=== PATIENT | female | born 1945 | race Caucasian/White ===

== ENCOUNTER → 2017-05-22 11:43 | Outpatient (CLI) | payer MEDICARE, SELFPAY ==
[2017-05-22 15:58] LABS: Chol/HDL Ratio 3.1 (1-3.5); Cholesterol 152 mg/dL (140-200); HDL Cholesterol 49 mg/dL (29-89); LDL Cholesterol 66 mg/dL (0-130); Triglycerides 183 mg/dL (30-200); VLDL Cholesterol 37 mg/dL (0-40)
[2017-05-22 16:45] LABS: Anion Gap 15.2 mEq/L (5-15); Chloride 102 mmol/L (98-107); Potassium 4.2 mmoL/L (3.5-5.1); Sodium 140 mmol/L (136-145)
[2017-05-22 17:19] LABS: Alanine Aminotransferase 27 U/L (12-78); Albumin/Globulin Ratio 1.1 (1.1-1.8); Alkaline Phosphatase 85 U/L (46-116); Aspartate Amino Transferase 21 U/L (15-37); Bilirubin,Total 0.3 mg/dL (0.2-1.0); Blood Urea Nitrogen 11 mg/dL (7-18); Calcium 9.2 mg/dL (8.5-10.1); Carbon Dioxide 27 mmol/L (21.0-32.0); Creatinine,Serum 0.89 mg/dL (0.55-1.02); Estimated Glomerular Filt Rate 63 ml/min (>60); GFR (African American) 76 ML/MIN (>60); Globulin 3.6 gm/dl (1.3-3.2); Glucose 94 mg/dL (74-106); Thyroid Stimulating Hormone 0.62 uIU/ml (0.358-3.740); Total Protein,Serum 7.6 gm/dL (6.4-8.2)
== END ==
PROVIDERS: Visit Provider Internal Medicine Adolescent Medicine
DX: E78.5 Hyperlipidemia, unspecified (principal); E03.9 Hypothyroidism, unspecified
CPT/HCPCS: 36415; 80053; 80061; 84443

== ENCOUNTER → 2017-07-20 11:56 | Outpatient (CLI) | payer MEDICARE, SELFPAY ==
--- NOTE | 2017-07-20 12:38 | XR_ITS ---
XR foot wt bearing LT 3V HISTORY: Foot pain ITS.REASON: RT FOOT ULCER ORDERING PHYSICIAN: Krysta Soria DPM PATIENT AGE: 71 years COMPARISON: None FINDINGS: No fracture or dislocation. No lytic or blastic change. There is normal mineralization.. The joint spaces are well-preserved. No significant degenerative/arthritic changes. No erosive changes evident. IMPRESSION: Negative, no acute finding
--- NOTE | 2017-07-20 12:38 | XR_ITS ---
XR foot wt bearing RT 3V HISTORY: ITS.REASON: RT FOOT ULCER ORDERING PHYSICIAN: Krysta Soria DPM PATIENT AGE: 71 years COMPARISON: None FINDINGS: There are mild osteoarthritic changes of the first metatarsal phalangeal joint with minimal hallux bowel gas with the first metatarsal phalangeal angle of 23 degrees. No fracture or lytic lesion on the lateral view another tiny hyperdensities along the soft tissues of the foot along the plantar and distal aspect of the first metatarsal. While this could be related to artifact, small foreign bodies are also included in the differential diagnosis. IMPRESSION: Mild hallux valgus with mild osteoarthritis of the first metatarsophalangeal joint Artifact versus foreign body along the plantar surface of the foot at the metatarsophalangeal junction
[2017-07-20 13:12] LABS: Basophils % 0.6 % (0.1-2.0); Eosinophils # 0.1 K/mm3 (0.0-0.4); Eosinophils % 0.9 % (0.1-12.0); Hemoglobin 14.4 g/dL (12.2-16.2); Lymphocytes # 2.8 K/mm3 (0.7-4.5); Mean Corpuscular HGB Conc 32.7 g/dL (31.8-35.4); Mean Corpuscular Hemoglobin 30.4 pg (27.0-31.2); Mean Corpuscular Volume 92.8 fl (81-99); Mean Platelet Volume 7.9 fl (7.4-10.4); Monocytes # 0.5 K/mm3 (0.1-1.0); Monocytes % 6.3 % (1.7-9.3); Neutrophils % 54.2 % (37.0-80.0); Platelet Count 214 K/mm3 (142-424); Red Blood Count 4.74 M/mm3 (4.20-5.40); Red Cell Distribution Width 12.8 % (11.5-17.5); White Blood Count 7.4 K/mm3 (4.8-10.8)
[2017-07-20 13:23] LABS: Hemoglobin A1C 5.5 % (0.0-7.0)
[2017-07-20 14:18] LABS: Erythrocyte Sedimentation Rate 13 mm/hr (0-30)
[2017-07-20 14:38] LABS: Alanine Aminotransferase 33 U/L (12-78); Albumin/Globulin Ratio 1.1 (1.1-1.8); Alkaline Phosphatase 88 U/L (46-116); Aspartate Amino Transferase 20 U/L (15-37); Bilirubin,Total 0.3 mg/dL (0.2-1.0); Blood Urea Nitrogen 9 mg/dL (7-18); Calcium 10.3 mg/dL (8.5-10.1); Carbon Dioxide 28 mmol/L (21.0-32.0); Chloride 104 mmol/L (98-107); Creatinine,Serum 0.86 mg/dL (0.55-1.02); Estimated Glomerular Filt Rate 65 ml/min (>60); GFR (African American) 79 ML/MIN (>60); Globulin 3.7 gm/dl (1.3-3.2); Glucose 93 mg/dL (74-106); Sodium 142 mmol/L (136-145); Total Protein,Serum 7.7 gm/dL (6.4-8.2)
[2017-07-20 14:43] LABS: C-Reactive Protein < 0.2 mg/L (0.0-0.9)
== END ==
PROVIDERS: Visit Provider Podiatrist
DX: L97.511 Non-pressure chronic ulcer of other part of right foot limited to breakdown of skin (principal)
CPT/HCPCS: 36415; 73630; 80053; 83036; 85025; 85651; 86140

== ENCOUNTER → 2017-07-26 10:47 | Outpatient (REF) | payer MEDICARE, SELFPAY | LOC: LAB 10:47 | PROVIDERS: Visit Provider Podiatrist | DX: L98.9 Disorder of the skin and subcutaneous tissue, unspecified (principal) | CPT/HCPCS: 87102; 87206; 87220 ==

== ENCOUNTER → 2018-01-23 09:51 | Outpatient (CLI) | payer MEDICARE, SELFPAY ==
[2018-01-23 12:59] LABS: Alanine Aminotransferase 34 U/L (12-78); Albumin Level 3.6 gm/dL (3.4-5.0); Alkaline Phosphatase 90 U/L (46-116); Anion Gap 11.3 mEq/L (5-15); Aspartate Amino Transferase 25 U/L (15-37); Bilirubin,Total 0.4 mg/dL (0.2-1.0); Blood Urea Nitrogen 12 mg/dL (7-18); Calcium 9.4 mg/dL (8.5-10.1); Carbon Dioxide 30 mmol/L (21.0-32.0); Chloride 104 mmol/L (98-107); Chol/HDL Ratio 2.9 (1-3.5); Cholesterol 136 mg/dL (140-200); Creatinine,Serum 0.85 mg/dL (0.55-1.02); Estimated Glomerular Filt Rate 66 ml/min (>60); GFR (African American) 80 ML/MIN (>60); Globulin 3.5 gm/dl (1.3-3.2); Glucose 90 mg/dL (74-106); HDL Cholesterol 47 mg/dL (29-89); LDL Cholesterol 51 mg/dL (0-130); Potassium 4.3 mmoL/L (3.5-5.1); Sodium 141 mmol/L (136-145); Total Protein,Serum 7.1 gm/dL (6.4-8.2); Triglycerides 192 mg/dL (30-200); VLDL Cholesterol 38 mg/dL (0-40)
== END ==
PROVIDERS: Visit Provider Internal Medicine Adolescent Medicine
DX: E78.5 Hyperlipidemia, unspecified (principal)
CPT/HCPCS: 36415; 80053; 80061

== ENCOUNTER → 2019-01-14 12:48 | Outpatient (CLI) | payer MEDICARE, SELFPAY ==
--- NOTE | 2019-01-14 12:58 | XR_ITS ---
PROCEDURE: XR SACROILIAC JOINT BI MIN 3V CLINICAL INDICATION: LOW BACK PAIN WITH SCIATICA COMPARISON: No exams were available for comparison FINDINGS: No fracture or dislocation. No lytic or blastic change. There are mild osteoarthritic changes of the left SI joint. No fusion or lytic change IMPRESSION: Mild osteoarthritic change of the left SI joint Dictated by: Dong Hope MD 01/14/2019 14:55 Electronically signed by Dong Hope MD in [place] 01/14/2019 14:55
--- NOTE | 2019-01-14 12:58 | XR_ITS ---
PROCEDURE: XR HIP LT 2-3V W/PELVIS CLINICAL INDICATION: LOW BACK PAIN WITH SCIATICA Mean pain remains on COMPARISON: No exams were available for comparison FINDINGS: There are mild osteoarthritic changes of the left hip. No fracture or dislocation. No lytic or blastic change. IMPRESSION: Mild osteoarthritis of the left hip Dictated by: Dong Hope MD 01/14/2019 14:52 Electronically signed by Dong Hope MD in [place] 01/14/2019 14:52
--- NOTE | 2019-01-14 12:58 | XR_ITS ---
PROCEDURE: XR HIP RT 2-3V W/PELVIS CLINICAL INDICATION: LOW BACK PAIN WITH SCIATICA COMPARISON: No exams were available for comparison FINDINGS: No fracture or dislocation. There are minimal osteoarthritic changes of the right hip with slight decrease in the joint space superiorly. No lytic or blastic change IMPRESSION: Minimal osteoarthritic change right hip Dictated by: Dong Hope MD 01/14/2019 14:36 Electronically signed by Dong Hope MD in [place] 01/14/2019 14:36
--- NOTE | 2019-01-14 12:58 | XR_ITS ---
PROCEDURE: XR LUMBAR SPINE MIN 4V CLINICAL INDICATION: LOW BACK PAIN WITH SCIATICA COMPARISON: No exams were available for comparison FINDINGS: Mild lumbar scoliosis convex left. Multilevel degenerative disc disease from L2-S1. There is 3 mm retrolisthesis of L2. There is 12 mm anterolisthesis of L4 with severe degenerative disc disease at L4-5. There is mild loss of height superiorly at L5 with some ill definition of the posterior superior aspect of the vertebral body. Mild osteoarthritic changes are present involving the left SI joint. Facet arthritic changes are present at L3-L4 L5 and S1. There are surgical clips in the right upper quadrant. IMPRESSION: Lumbar spondylosis with degenerative disc disease and facet arthritic change. Grade 1 spondylolisthesis L4 on L5. There is some loss of height involving the superior aspect of L5. This is age indeterminate. MRI of the lumbar spine may be of further value. Dictated by: Dong Hope MD 01/14/2019 14:35 Electronically signed by Dong Hope MD in [place] 01/14/2019 14:35
== END ==
PROVIDERS: PCP Internal Medicine Adolescent Medicine; Visit Provider Internal Medicine Adolescent Medicine
DX: M54.5 Low back pain (principal); M53.3 Sacrococcygeal disorders, not elsewhere classified
CPT/HCPCS: 72110; 72202; 73502

== ENCOUNTER → 2019-02-11 12:47 | Outpatient (POV) | payer MEDICARE, SELFPAY ==
[2019-02-11 13:13] VITALS: BP 132/55; PULSE 95; RESP 18; O2SAT 97; BMI 24.0
--- NOTE | 2019-02-11 14:20 | HMH.PMCON ---
Assessment and Plan (1) Sacroiliitis Current visit: Yes Status: Acute Category: Medical Code(s): M46.1 - Sacroiliitis, not elsewhere classified (2) Degenerative disc disease Current visit: Yes Status: Chronic Category: Medical (3) Postlaminectomy syndrome Current visit: Yes Status: Chronic Category: Medical Code(s): M96.1 - Postlaminectomy syndrome, not elsewhere classified - Assessment and plan all Dx Assessment and Plan for all problems:: Patient had a long discussion in regards to treatment options I believe we will begin with an SI joint injection bilaterally. We will see if this is beneficial in regards to her low back and SI joint pain. Patient may need an epidural in the future however I do believe that this would be a good place to start given her symptomology. She is continuing her anti-inflammatories and her's home stretching program. I will follow-up with her after injection reassess her symptoms at that time she is been instructed to call the office if she has any issues prior to her next appointment. Dr. Espinosa has reviewed this note and agrees with this plan of care. This note was dictated using voice recognition software and may contain errors or omissions HPI - Data of Consult Consult date: 02/11/19 Requesting Physician: Savannah Barksdale APRN Primary Care Provider: Zander Santos MD - Consult Narrative Reason for consult: Back pain History of present illness: Ms. Cavazos is a 73 year old female who presents today for consultation in regards to her lower back pain. Patient had surgery several years ago. Most of her pain today is in her low back across the entire width of it. Patient does have some radiation down into her left leg. Patient has pain over her bilateral SI she rates her pain today 6 out of 10. Is continually getting worse. Patient is tried and failed anti-inflammatories along with therapy. Patient is continuing a home stretching program. Patient does have x-ray showing osteoarthritic changes involving the SI joints. Patient also has facet arthropathy along with degenerative disc disease. CC: Savannah Barksdale APRN [facility] History I have reviewed the patient's past medical history: Yes Medical History: Reports:: Hyperlipidemia Denies:: Cancer, Diabetes Mellitus Type 1, Diabetes Mellitus Type 2, MRSA *Have you ever received a pneumonia vaccine?: Yes *Have you received a flu vaccine this season?: Yes Other Medical History: Reports: Arthritis, Hypothyroidism, Thyroid Disease Other Surgeries: Yes: No Previous Surgery, Cholecystectomy, Hysterectomy-Total Amputation: No Fractures: No - *Social History Smoking Status: Current every day smoker Tobacco Type: cigarettes # Packs/Day (cigarettes): 1 Alcohol Intake: never Alcohol Intake Frequency:: holidays/special occasions only *Occupational Status:: retired Housing: house Household Members: family *Travel in the last 8 weeks: None Family Hx:: Cancer Review of Systems - Review of Systems ROS General: no recent weight change, no fever, no sleep disturbances Respiratory: no cough, no shortness of air, no recurring pulmonary infections Cardiovascular/Peripheral Vascular: No chest pain, No palpitations, no edema, no shortness of breath. Gastrointestinal: no new onset incontinence, normal bowel movements reported Genitourinary: no new onset incontinence Musculoskeletal: Back pain and SI joint pain Psychiatric: normal mood/ affect Neurological: [denies new onset weakness in extremities], [denies new onset balance issues] Meds Home Medications Medication Instructions Recorded Confirmed Type calcium carbonate-vitamin D3 600 cap PO 07/26/17 04/09/18 History mg (1,500 mg)-400 unit capsule coenzyme [id number] E 100 mg-100 cap PO 07/26/17 04/09/18 History unit capsule cyclobenzaprine 10 mg tablet 10 mg PO BID tab 07/26/17 02/11/19 History diclofenac potassium 50 mg tablet 50 mg PO BID 07/26/17 1
--- NOTE | 2019-02-11 14:26 | P.CONS_ITS ---
Assessment and Plan (1) Sacroiliitis Current visit: Yes Status: Acute Category: Medical Code(s): M46.1 - Sacroiliitis, not elsewhere classified (2) Degenerative disc disease Current visit: Yes Status: Chronic Category: Medical (3) Postlaminectomy syndrome Current visit: Yes Status: Chronic Category: Medical Code(s): M96.1 - Postlaminectomy syndrome, not elsewhere classified - Assessment and plan all Dx Assessment and Plan for all problems:: Patient had a long discussion in regards to treatment options I believe we will begin with an SI joint injection bilaterally. We will see if this is beneficial in regards to her low back and SI joint pain. Patient may need an epidural in the future however I do believe that this would be a good place to start given her symptomology. She is continuing her anti-inflammatories and her's home stretching program. I will follow-up with her after injection reassess her symptoms at that time she is been instructed to call the office if she has any issues prior to her next appointment. Dr. Espinosa has reviewed this note and agrees with this plan of care. This note was dictated using voice recognition software and may contain errors or omissions HPI - Data of Consult Consult date: 02/11/19 Requesting Physician: Savannah Barksdale APRN Primary Care Provider: Zander Santos MD - Consult Narrative Reason for consult: Back pain History of present illness: Ms. Cavazos is a 73 year old female who presents today for consultation in regards to her lower back pain. Patient had surgery several years ago. Most of her pain today is in her low back across the entire width of it. Patient does have some radiation down into her left leg. Patient has pain over her bilateral SI she rates her pain today 6 out of 10. Is continually getting worse. Patient is tried and failed anti-inflammatories along with therapy. Patient is continuing a home stretching program. Patient does have x-ray showing osteoarthritic changes involving the SI joints. Patient also has facet arthropathy along with degenerative disc disease. CC: Savannah Barksdale APRN [facility] History I have reviewed the patient's past medical history: Yes Medical History: Reports:: Hyperlipidemia Denies:: Cancer, Diabetes Mellitus Type 1, Diabetes Mellitus Type 2, MRSA *Have you ever received a pneumonia vaccine?: Yes *Have you received a flu vaccine this season?: Yes Other Medical History: Reports: Arthritis, Hypothyroidism, Thyroid Disease Other Surgeries: Yes: No Previous Surgery, Cholecystectomy, Hysterectomy-Total Amputation: No Fractures: No - *Social History Smoking Status: Current every day smoker Tobacco Type: cigarettes # Packs/Day (cigarettes): 1 Alcohol Intake: never Alcohol Intake Frequency:: holidays/special occasions only *Occupational Status:: retired Housing: house Household Members: family *Travel in the last 8 weeks: None Family Hx:: Cancer Review of Systems - Review of Systems ROS General: no recent weight change, no fever, no sleep disturbances Respiratory: no cough, no shortness of air, no recurring pulmonary infections Cardiovascular/Peripheral Vascular: No chest pain, No palpitations, no edema, no shortness of breath. Gastrointestinal: no new onset incontinence, normal bowel movements reported Genitourinary: no new onset incontinence Musculoskeletal: Back pain and SI joint pain Psychiatric: normal mood/ affect Neurological: [denies new onset weakness in extremities], [denies new onset balance issues]
== END ==
PROVIDERS: PCP Internal Medicine Adolescent Medicine; Visit Provider Clinical Nurse Specialist Family Health
DX: M46.1 Sacroiliitis, not elsewhere classified (principal); M96.1 Postlaminectomy syndrome, not elsewhere classified
CPT/HCPCS: 99202

== ENCOUNTER → 2019-03-12 11:32 | Outpatient (POV) | payer MEDICARE, SELFPAY ==
[2019-03-12 11:53] VITALS: BP 128/73; PULSE 80; RESP 18; O2SAT 99; BMI 24.3
--- NOTE | 2019-03-12 12:16 | HMH.PAINSOAP ---
[facility] Pain Management SOAP Note Subjective:: Patient is a very pleasant 73-year-old white female who presents today for follow-up after bilateral SI joint injections. Patient is being treated for low back pain with radiation into her bilateral buttocks and down her left leg. Patient says she has had this pain ongoing for greater than 10 years. She says the pain has always been worse on the left side. Patient says she got approximately 80% relief for up to 2 weeks following her bilateral SI joint injections. She does say that she got more relief on the right side, however, she says that her right side pain has never been as bad as the left side. Patient does admit that she did do a great deal of strenuous exercising, along with lifting and walking following her injections. She says it was around the Thanksgiving and she was moving around a lot more. She feels this is why the injections did not give her full relief. She would like to proceed with bilateral SI joint injections again. She has rated her pain a 4 out of 10 today. She does continue with anti-inflammatories and a home stretching program. Review of Systems General: No recent weight changes, no fever, no sleep disturbances Respiratory: No cough, no shortness of air, no recurring pulmonary infections Cardiovascular/peripheral vascular: No chest pain, no palpitations, no edema, no shortness of breath Gastrointestinal: No new onset incontinence, normal bowel movements reported Genitourinary: No new onset incontinence Musculoskeletal: Low back pain, bilateral buttock pain, left leg pain Psychiatric: Normal mood/affect Neurological: [Denies weakness in extremities], [denies balance issues] Objective:: Physical exam General: Alert and oriented x3, no acute distress, pleasant and cooperative, [on room air] Lungs: Respirations even and unlabored, symmetrical chest expansion Eyes: PERRL Musculoskeletal: Flexion and extension of lumbar spine somewhat guarded secondary to pain, deep tendon reflexes normal, strength in upper and lower extremities [5/5], [abnormal gait noted], positive Otterbein's test, positive Ally's test, positive compression test, positive distraction test Neurological: Speech clear, concrete rod buster equal, no gross sensory deficit Assessment:: Bilateral sacroiliitis Plan:: We will schedule the patient for bilateral SI joint injections. She does have notable point tenderness and positive Lalito, Ally's, distraction, and compression test. She will continue with anti-inflammatories and a home stretching program. Patient also purchased an SI belt and says that this is giving her about 40% relief. We will see her back following her injections to reassess her symptoms. The patient has been instructed to contact the clinic if she has any concerns before her next appointment. Dr. Espinosa has reviewed this note and agrees with this plan of care. This note was dictated using voice recognition software and make contain errors or omissions. [facility] History I have reviewed the patient's past medical history: Yes Medical History: Reports:: Hyperlipidemia Denies:: Cancer, Diabetes Mellitus Type 1, Diabetes Mellitus Type 2, MRSA *Have you ever received a pneumonia vaccine?: Yes *Have you received a flu vaccine this season?: Yes Other Medical History: Reports: Arthritis, Hypothyroidism, Thyroid Disease Other Surgeries: Yes: No Previous Surgery, Cholecystectomy, Hysterectomy-Total Amputation: No Fractures: No - *Social History Smoking Status: Current every day smoker Tobacco Type: cigarettes # Packs/Day (cigarettes): 1 Alcohol Intake: never Alcohol Intake Frequency:: holidays/special occasions only *Occupational Status:: other Housing: house Household Members: family *Travel in the last 8 weeks: None Family Hx:: Cancer
== END ==
PROVIDERS: PCP Internal Medicine Adolescent Medicine; Visit Provider Clinical Nurse Specialist Family Health
DX: M46.1 Sacroiliitis, not elsewhere classified (principal)
CPT/HCPCS: 99212

== ENCOUNTER → 2019-05-07 11:31 | Outpatient (POV) | payer MEDICARE, SELFPAY ==
--- NOTE | 2019-05-07 11:52 | HMH.PAINSOAP ---
[facility] Pain Management SOAP Note Subjective:: She is a pleasant 73-year-old white female who presents today for follow-up after bilateral SI joint injections. Patient got over 80% relief and is doing extremely well. Patient still has a positive Lalito sign Jamil sign and SI joint compression sign bilaterally however her pain is a 2 out of 10. She is able to do better during her daily activities. Patient would like to repeat the injection and 8 weeks. We will move forward with this. Patient will cancel the injection if she feels like it is unnecessary at the time ROS General: no recent weight change, no fever, no sleep disturbances Respiratory: no cough, no shortness of air, no recurring pulmonary infections Cardiovascular/Peripheral Vascular: No chest pain, No palpitations, no edema, no shortness of breath. Gastrointestinal: no new onset incontinence, normal bowel movements reported Genitourinary: no new onset incontinence Musculoskeletal: SI joint pain Psychiatric: normal mood/ affect Neurological: [denies new onset weakness in extremities], [denies new onset balance issues] Objective:: Physical Exam General: Alert and oriented x3, no acute distress, pleasant and cooperative, [on room air] Lungs: Resps E/U, Symmetrical chest expansion, Eyes: PERRL Musculoskeletal: Flexion and extension of lumbar spine somewhat guarded secondary to pain, deep tendon reflexes normal, strength in upper and lower extremities [5/5], slightly antalgic gait noted Neurological: speech clear, sheep farmer equal, no gross sensory deficits Assessment:: Sacroiliitis Plan:: We will schedule the patient for repeat injection in a month. Patient's been instructed to call the office if she has any issues prior to her next appointment. She is continuing her anti-inflammatories and her home stretching program. Dr. Espinosa has reviewed this note and agrees with this plan of care. This note was dictated using voice recognition software and may contain errors or omissions [facility] History I have reviewed the patient's past medical history: Yes Medical History: Reports:: Hyperlipidemia Denies:: Cancer, Diabetes Mellitus Type 1, Diabetes Mellitus Type 2, MRSA, Seizures *Have you ever received a pneumonia vaccine?: No *Have you received a flu vaccine this season?: No Other Medical History: Reports: Arthritis, Hypothyroidism, Thyroid Disease Other Surgeries: Yes: No Previous Surgery, Cholecystectomy, Hysterectomy-Total Amputation: No Fractures: No - *Social History Smoking Status: Current every day smoker Tobacco Type: cigarettes # Packs/Day (cigarettes): 1 Alcohol Intake: current Alcohol Intake Frequency:: holidays/special occasions only *Occupational Status:: other Housing: house Household Members: family *Travel in the last 8 weeks: None Family Hx:: Cancer
[2019-05-07 12:08] VITALS: BP 105/48; PULSE 80; RESP 18; O2SAT 99; BMI 24.3
== END ==
PROVIDERS: PCP Internal Medicine Adolescent Medicine; Visit Provider Clinical Nurse Specialist Family Health
DX: M46.1 Sacroiliitis, not elsewhere classified (principal); Z72.0 Tobacco use
CPT/HCPCS: 99212

== ENCOUNTER → 2019-10-28 11:28 | Outpatient (CLI) | payer MEDICARE, SELFPAY ==
[2019-10-28 12:02] LABS: Basophils # 0.1 K/mm3 (0-0.2); Eosinophils # 0.2 K/mm3 (0.0-0.4); Eosinophils % 2.7 % (0.1-12.0); Hematocrit 42.8 % (37.0-47.0); Hemoglobin 14.6 g/dL (12.2-16.2); Lymphocytes % 34.4 % (10-50); Mean Corpuscular HGB Conc 34.2 g/dL (31.8-35.4); Mean Corpuscular Hemoglobin 31.4 pg (27.0-31.2); Mean Corpuscular Volume 91.8 fl (81-99); Mean Platelet Volume 7.6 fl (7.4-10.4); Monocytes # 0.4 K/mm3 (0.1-1.0); Neutrophils % 57.9 % (37.0-80.0); Platelet Count 280 K/mm3 (142-424); Red Blood Count 4.66 M/mm3 (4.20-5.40); Red Cell Distribution Width 12.8 % (11.5-17.5); White Blood Count 8.7 K/mm3 (4.8-10.8)
[2019-10-28 12:58] LABS: Alanine Aminotransferase 16 U/L (12-78); Albumin Level 4.3 g/dl (3.5-5.0); Albumin/Globulin Ratio 1.5 (1.1-1.8); Alkaline Phosphatase 98 U/L (38-126); Anion Gap 11.3 mEq/L (5-15); Aspartate Amino Transferase 25 U/L (14-36); Bilirubin,Total 0.5 mg/dl (0.2-1.3); Blood Urea Nitrogen 12 mg/dl (7-17); Calcium 10.3 mg/dl (8.4-10.2); Carbon Dioxide 27 mmol/L (22.0-30.0); Chloride 104 mmol/L (98-107); Chol/HDL Ratio 2.9 (1-3.5); Cholesterol 151 mg/dl (140-200); Estimated Glomerular Filt Rate 82 ml/min (>60); GFR (African American) 99 ML/MIN (>60); Globulin 2.9 g/dL (1.3-3.2); Glucose 95 mg/dl (74-100); HDL Cholesterol 52 mg/dl (40-60); Potassium 4.3 mmoL/L (3.5-5.1); Sodium 138 mmol/L (136-145); Total Protein,Serum 7.2 g/dl (6.3-8.2); Triglycerides 251 mg/dl (30-150); VLDL Cholesterol 50 mg/dL (0-40)
[2019-10-28 13:09] LABS: Direct LDL Cholesterol 73.69 mg/dL (100-129)
[2019-10-28 13:29] LABS: Thyroid Stimulating Hormone 1.14 uIU/mL (0.465-4.68)
== END ==
PROVIDERS: Visit Provider Internal Medicine Adolescent Medicine
DX: E78.5 Hyperlipidemia, unspecified (principal); E03.9 Hypothyroidism, unspecified; M43.16 Spondylolisthesis, lumbar region
CPT/HCPCS: 36415; 80053; 80061; 84443; 85025

== ENCOUNTER → 2019-11-07 13:29 | Outpatient (CLI) | payer MEDICARE, SELFPAY ==
--- NOTE | 2019-11-07 13:33 | CT_ITS ---
PROCEDURE: CT SINUS WO CON CLINICAL HISTORY: RECURRENT MAXILLARY SINUSITIS COMPARISON: No exams were available for comparison TECHNIQUE: Axial images obtained with sagittal and coronal reformats. All CT scans at the facility use one or more dose reduction, viz: automated exposure control, ma/kV adjustment per patient size (including targeted exams where dose is matched to indication, i.e. head), or iterative reconstruction technique. FINDINGS: There is mild mucosal thickening of the frontal sinus on the left with a small air-fluid level. Mucosal thickening also involves the anterior left ethmoid air cells. There is complete opacification of the left maxillary sinus. The right frontal ethmoid and maxillary sinus are unremarkable. The sphenoid sinuses have an unremarkable appearance. No mastoid effusion. The left ostiomeatal complex is occluded. The left maxillary sinus wall is slightly thickened suggesting chronic inflammatory changes. IMPRESSION: Left frontal ethmoid and maxillary sinusitis with mild thickening of the left maxillary sinus wall suggesting chronic sinusitis. There is a small air-fluid level in the left frontal sinus. There is complete opacification of the left maxillary sinus. Dictated b Dong Hope MD 11/07/2019 18:07 Dong Hope MD in [place] 11/07/2019 18:07
== END ==
PROVIDERS: PCP Internal Medicine Adolescent Medicine; Visit Provider Internal Medicine Adolescent Medicine
DX: J01.01 Acute recurrent maxillary sinusitis (principal)
CPT/HCPCS: 70486

== ENCOUNTER → 2020-01-14 09:52 | Outpatient (POV) | payer MEDICARE, SELFPAY | PROVIDERS: Visit Provider Otolaryngology | DX: Z00.00 Encounter for general adult medical examination without abnormal findings (principal) ==

== ENCOUNTER → 2020-04-14 12:49 | Outpatient (POV) | payer MEDICARE, SELFPAY | PROVIDERS: Visit Provider Dermatology | DX: Z00.00 Encounter for general adult medical examination without abnormal findings (principal) ==

== ENCOUNTER → 2020-07-21 12:53 | Outpatient (POV) | payer MEDICARE, SELFPAY | PROVIDERS: Visit Provider Dermatology | DX: Z00.00 Encounter for general adult medical examination without abnormal findings (principal) ==

== ENCOUNTER → 2020-10-19 10:09 | Outpatient (POV) | payer MEDICARE, SELFPAY ==
[2020-10-19 10:20] VITALS: BP 145/62; PULSE 91; RESP 18; O2SAT 97; BMI 23.8
--- NOTE | 2020-10-19 11:24 | HMH.PAINSOAP ---
[facility] Pain Management SOAP Note Subjective:: Patient is a pleasant 75-year-old white female who presents today for follow-up. Patient was last seen in our clinic on 05/21/2019. At that time, the patient did undergo bilateral SI joint injections. Patient did discuss possible RFA versus SI joint fusion at that time. Following those injections, the patient was found to have skin cancer on her left side of face. She did undergo surgical intervention and then had sinus surgery afterwards as well. She has had to postpone any type of injective therapy. Patient is now having pain in her low back area that occasionally radiates into her left leg with a cold sensation. She says the pain also goes into the left foot. She does have left groin pain and left buttock pain. She has been to [facility] in the past and did epidural steroid injections with minimal relief. Patient says that she has pain to bilateral low back area, the left side is worse, however. Patient says standing, walking or when the pain is worse. Sitting does give her some relief. Patient says with her last injections, she did get greater than 60% relief for approximately 3 days. Her pain did return. Prior to those SI injections she did have bilateral SI injections which gave her significant relief, up to 80% for greater than a month. Patient says that the pain is is back and similar to the type of pain she had in the past. Her pain is a 4 out of 10 today. She continues with home stretching and with anti-inflammatories. She is also tried physical therapy for greater than 6 weeks in the past. She has gotten minimal relief. She says that a previous provider did discuss RFA with her. Patient has never had medial branch blocks. She does not report pain with leaning forward. Rather, she says her pain feels better with leaning forward. She is not having pain with extension at her waist. She and I did discuss that if the SI injections did give her relief, corner lock procedure may be an option for her. She would like to proceed with bilateral SI joint injections to see if this gives her relief. She does have tenderness to bilateral SI joints as well as a positive Ally's, compression, distraction test. The pain is worse on the left side. Objective:: Physical exam General: Alert and oriented x3, no acute distress, pleasant and cooperative, [on room air] Lungs: Respirations even and unlabored, symmetrical chest expansion Eyes: PERRL Musculoskeletal: Flexion and extension of [] lumbar [spine] somewhat guarded secondary to pain, strength in upper and lower extremities [5/5], [antalgic gait noted], positive Ally's test, positive compression test, positive distraction test Neurological: Speech clear, [cashier general equal], no gross sensory deficit Assessment:: Sacroiliitis bilateral Plan:: We will schedule the patient for bilateral SI joint injections. She has tried these injections in the past and did not get significant relief. Patient will need to undergo x-ray of pelvis if she is considered to be a corner lock candidate. She is having worse pain on the left side. She does have a positive Ally's, compression, distraction test today as well as tenderness over her SI joints. The left side seems to be worse for her today. She is continuing with home stretching, ice and heat and anti-inflammatories. We will see her back in the clinic after her injections for further evaluation and discuss a further plan of care. Risks and benefits of the procedure have been explained to the patient. Patient would like to proceed with the procedure. Possible side effects of corticosteroids have been discussed with the patient. Patient has been instructed to contact the clinic with any concerns before the next appointment. Dr. Espinosa has reviewed this note and agrees with this plan of care. This note was dictated using voice recognition software and make contain errors or omissions. [facility] History I
== END ==
PROVIDERS: PCP Internal Medicine Adolescent Medicine; Visit Provider Clinical Nurse Specialist Family Health
DX: M46.1 Sacroiliitis, not elsewhere classified (principal)
CPT/HCPCS: 99212; G0463

== ENCOUNTER → 2020-10-26 07:43 | Outpatient (CLI) | payer MEDICARE, SELFPAY ==
--- NOTE | 2020-10-26 07:45 | CT_ITS ---
PROCEDURE: CT LUNG SCREENING CLINICAL INDICATION: H/O NICOTINE DEPENDENCE Current smoker 50 pack year smoking history COMPARISON: CT CHWWO CT CHEST W/WO CONTRAST from 01/02/2017 TECHNIQUE: The exam was performed on a GE Light Speed [address] scanner using 2.90 mGy CTDI. A low dose helical CT CHEST was performed on a multi-detector scanner. All CT scans at the facility use one or more dose reduction, viz: automated exposure control, ma/kV adjustment per patient size (including targeted exams where dose is matched to indication, i.e. head), or iterative reconstruction technique. The LDCT was performed in a facility that meets the criteria for the screening program. Data regarding this exam was submitted to ACR which is an approved registry. The order for this exam indicates that it came as a result of a lung cancer screening counseling shard decision-making visit that included all the elements required of such a visit including smoking cessation. The radiologist interpreting this exam meets the CMS criteria for the LDCT lung cancer screening program. The exam is reported using the Lung-RADS classification scale and reported to the ACR registry. NOTE: This study was performed for the specific purposes of lung cancer screening and is not an alternative to diagnostic chest CT. RADIATION DOSE: CTDI vol(CT dose Index-volume) = 2.90mG DLP (Dose Length Product) = 111.51 mGcm FINDINGS: COPD changes with scattered areas of scarring. There is an irregular opacity in the right costophrenic sulcus at approximately 1 x 0.8 cm. This may be due to an area of scarring. This was not present on the previous exam. There are scattered small parenchymal and subpleural opacities which are unchanged. A 10 mm noncalcified nodules present in the superior segment of the left lower lobe which is slightly increased in size previously measuring 8 mm. This nodule may contain some fat and could represent hamartoma. PET CT correlation suggested if not already performed. OTHER FINDINGS: Mildly prominent precarinal lymph node is present at 1.5 x 1 cm not significantly changed. Coronary artery calcifications are noted. There is a 4 mm nonobstructing stone in the upper pole of the left kidney. There is an asymmetric density in the mid aspect of the left breast superiorly which appears stable by CT however, mammographic correlation is needed. IMPRESSION: Lung-RADS Category 4A Suspicious Follow-up: Suggest PET-CT for further evaluation if not already performed of the 10 mm left lower lobe nodule. This could represent a hamartoma. Cannot exclude an indolent neoplasm. Also suggest mammographic correlation regarding asymmetric density of the left breast. Dictated by: Dong Hope MD 11/08/2020 13:13 Dong Hope MD in [place] 11/08/2020 13:13
[2020-10-26 08:41] LABS: Basophils # 0.1 K/mm3 (0-0.2); Basophils % 0.9 % (0.1-2.0); Eosinophils # 0.3 K/mm3 (0.0-0.4); Eosinophils % 2.1 % (0.1-12.0); Hematocrit 41.9 % (37.0-47.0); Hemoglobin 14.1 g/dL (12.2-16.2); Lymphocytes # 3.1 K/mm3 (0.7-4.5); Lymphocytes % 24.2 % (10-50); Mean Corpuscular HGB Conc 33.7 g/dL (31.8-35.4); Mean Corpuscular Hemoglobin 30.4 pg (27.0-31.2); Mean Corpuscular Volume 90.2 fl (81-99); Mean Platelet Volume 7.7 fl (7.4-10.4); Monocytes # 0.4 K/mm3 (0.1-1.0); Monocytes % 3.3 % (1.7-9.3); Neutrophils # 8.8 K/mm3 (1.8-7.8); Neutrophils % 69.5 % (37.0-80.0); Platelet Count 289 K/mm3 (142-424); Red Blood Count 4.65 M/mm3 (4.20-5.40); Red Cell Distribution Width 13.4 % (11.5-17.5); White Blood Count 12.7 K/mm3 (4.8-10.8)
[2020-10-26 09:14] LABS: Chloride 106 mmol/L (98-107); Potassium 4.9 mmoL/L (3.5-5.1); Sodium 141 mmol/L (136-145)
[2020-10-26 09:17] LABS: Alanine Aminotransferase 18 U/L (12-78); Albumin Level 4.3 g/dl (3.5-5.0); Albumin/Globulin Ratio 1.4 (1.1-1.8); Alkaline Phosphatase 93 U/L (38-126); Anion Gap 11.9 mEq/L (5-15); Aspartate Amino Transferase 28 U/L (14-36); Bilirubin,Total 0.4 mg/dl (0.2-1.3); Blood Urea Nitrogen 13 mg/dl (7-17); Carbon Dioxide 28 mmol/L (22.0-30.0); Cholesterol 148 mg/dl (140-200); Estimated Glomerular Filt Rate 82 ml/min (>60); GFR (African American) 99 ML/MIN (>60); Globulin 3.1 g/dL (1.3-3.2); Total Protein,Serum 7.4 g/dl (6.3-8.2); Triglycerides 196 mg/dl (30-150); VLDL Cholesterol 39 mg/dL (0-40)
[2020-10-26 09:18] LABS: Calcium 9.7 mg/dl (8.4-10.2); Chol/HDL Ratio 3.1 (1-3.5); Glucose 98 mg/dl (74-100); HDL Cholesterol 48 mg/dl (40-60)
[2020-10-26 09:29] LABS: Direct LDL Cholesterol 68.47 mg/dL (100-129)
[2020-10-26 09:48] LABS: Thyroid Stimulating Hormone 2.26 uIU/mL (0.465-4.68)
== END ==
PROVIDERS: PCP Internal Medicine Adolescent Medicine; Visit Provider Internal Medicine Adolescent Medicine
DX: Z87.891 Personal history of nicotine dependence (principal); Z12.2 Encounter for screening for malignant neoplasm of respiratory organs; E78.5 Hyperlipidemia, unspecified; E03.9 Hypothyroidism, unspecified
CPT/HCPCS: 36415; 71271; 80053; 80061; 84443; 85025

== ENCOUNTER 2020-10-30 10:14 | Day surgery (SDC) | payer MEDICARE, SELFPAY ==
[2020-10-30 10:16] VITALS: BP 120/69; PULSE 85; RESP 20; TEMP 36.6; O2SAT 98; BMI 23.9
[2020-10-30 10:29] VITALS: BP 111/72; PULSE 83; RESP 18; O2SAT 97
[2020-10-30 10:30] VITALS: BP 125/62; PULSE 87; RESP 18; O2SAT 98
--- NOTE | 2020-10-30 10:46 | P.PCN_ITS ---
- Procedure Date: 10/30/20 Time: 10:46 Anesthesiologist:: Ailyn Greenwood MD Complications:: None Pre-procedure Diagnosis:: Bilateral sacroiliitis, chronic low back pain, chronic bilateral hip pain Post-procedure Diagnosis:: Same Indications for Procedure:: She is a very pleasant 75-year-old white female who presents today with chronic low back and chronic bilateral hip pain related to the above diagnosis. She has tried and failed conservative treatment including oral pain medication and home stretching program for greater in 6 weeks. Of note, she has previously undergone bilateral SI joint injections in the past and states that she got about 80% pain relief for greater than 1 month with the first set. Over, with the subsequent injections she has been getting 80% but unfortunately very short- term relief for approximately 3 days. Of note, she complains of pain in her low back and radiates down her left lower extremity as well as left-sided groin and left-sided buttock pain and she states she has previously been to [facility] in the past and had underwent an epidural steroid injection with minimal relief. Plan for today is for the patient to undergo repeat bilateral SI joint injections under fluoroscopy Procedure Details:: Informed consent was obtained and the risks and benefits of the procedure was explained to the patient. The patient was taken to the procedure room and placed prone on the procedure table. The patient was prepped using ChloraPrep. The skin and subcutaneous tissues overlying the SI joints were anesthetized using lidocaine. I placed a 22-gauge needle first in the left SI joint and second in the right SI joint. Needle placement was confirmed with dye. After this we injected 5 mL bupivacaine 0.25% and Depo-Medrol 40 mg into each SI joint. Patient tolerated the procedure well with no complication. Plan and Disposition:: Follow-up with this patient in 2 weeks. Will reevaluate pain symptoms at that time. Discussed with the patient should she continue to receive only minimal or short-term pain relief with these injections then she may be a candidate for SI joint stabilization in the future. She states her left SI joint is worse than the right so should we proceed with SI joint stabilization procedure we will start with the left side first.
[2020-10-30 10:53] VITALS: BP 104/50; PULSE 73; RESP 18; O2SAT 98
== END 2020-10-30 10:55 | disposition home or self-care (01) ==
LOC: SC.PAINP 10:15
PROVIDERS: PCP Internal Medicine Adolescent Medicine; Visit Provider Anesthesiology Pain Medicine
DX: M46.1 Sacroiliitis, not elsewhere classified (principal); M54.6 Pain in thoracic spine; G89.29 Other chronic pain; E78.5 Hyperlipidemia, unspecified; E03.9 Hypothyroidism, unspecified; M19.90 Unspecified osteoarthritis, unspecified site; Z72.0 Tobacco use
CPT/HCPCS: 27096; G0260; J1030; Q9966

== ENCOUNTER → 2020-12-03 09:20 | Outpatient (POV) | payer MEDICARE, SELFPAY ==
[2020-12-03 09:45] VITALS: BP 120/58; PULSE 82; RESP 18; O2SAT 100; BMI 23.8
--- NOTE | 2020-12-03 10:41 | HMH.PAINSOAP ---
[facility] Pain Management SOAP Note Subjective:: Patient is a pleasant 75-year-old white female who presents today for follow-up after bilateral SI joint injections. The patient is being treated fo bilateral sacroiliitis. Patient does have chronic low back pain with bilateral chronic hip pain as well. Patient says that she got approximately 70 to 80% relief for 2 weeks after the injection. She is still getting relief, however, her pain is slowly starting to return. She does have pain in the bilateral low back area with radiation into the left leg and into the left great toe. She says that it is a cold sensation in her foot. This sensation did subside initially after the injection, however, it is slowly returning. Patient does report it took 2 to 3 days to begin to get relief after the injection. Patient does have tenderness to bilateral SI joints, however, worse to the left side. She does rate her pain a 5 out of 10 today. She is interested in repeat injective therapy. At her initial visit, there was discussion of corner lock if she does get significant relief with the injections. Review of Systems General: No recent weight changes, no fever, no sleep disturbances Respiratory: No cough, no shortness of air, no recurring pulmonary infections Cardiovascular/peripheral vascular: No chest pain, no palpitations, no edema, no shortness of breath Gastrointestinal: No new onset incontinence, normal bowel movements reported Genitourinary: No new onset incontinence Musculoskeletal: Bilateral low back pain worse to left, left leg pain with numbness and tingling into left great toe Psychiatric: [Normal mood/affect] Neurological: [Denies weakness in extremities], [denies balance issues] Objective:: Physical exam General: Alert and oriented x3, no acute distress, pleasant and cooperative, [on room air] Lungs: Respirations even and unlabored, symmetrical chest expansion Eyes: PERRL Musculoskeletal: Flexion and extension of lumbar [spine] somewhat guarded secondary to pain, strength in upper and lower extremities [5/5], [antalgic gait noted], positive Ally's test, positive distraction test, positive compression test Neurological: Speech clear, [facilities maintenance worker equal], no gross sensory deficit Assessment:: Sacroiliitis bilateral Plan:: We will schedule the patient for repeat bilateral SI joint injections. If the patient gets significant relief, with return of symptoms, she may be a corner lock candidate. She has been given educational information regarding the procedure and was educated on expectations of the procedure. She does understand she does need to get significant relief with the injections to be considered a candidate for the procedure. We will follow up with her after her injections for reevaluation symptoms. Patient has been instructed to contact clinic if she has any concerns for next morning. Possible side effects of corticosteroids have been discussed with the patient. Risks and benefits of the procedure have been explained to the patient. Patient would like to proceed with the procedure. Patient has been instructed to contact the clinic with any concerns before the next appointment. Dr. Espinosa has reviewed this note and agrees with this plan of care. This note was dictated using voice recognition software and make contain errors or omissions. [facility] History I have reviewed the patient's past medical history: Yes Medical History: Reports:: Cancer (melanoma), Hyperlipidemia Denies:: Diabetes Mellitus Type 1, Diabetes Mellitus Type 2, MRSA, Seizures *Have you ever received a pneumonia vaccine?: No *Have you received a flu vaccine this season?: No Other Medical History: Reports: Arthritis, Hypothyroidism, Thyroid Disease Other Surgeries: Yes: No Previous Surgery, Cholecystectomy, Hysterectomy-Total, Sinus Surgery Amputation: No Fractures: No - *Social History Smoking Status: Current every day smoker Tobacco Type: cigarettes # Pa
== END ==
PROVIDERS: PCP Internal Medicine Adolescent Medicine; Visit Provider Clinical Nurse Specialist Family Health
DX: M46.1 Sacroiliitis, not elsewhere classified (principal)
CPT/HCPCS: 99212; G0463

== ENCOUNTER 2021-01-01 09:17 | Day surgery (SDC) | payer MEDICARE, SELFPAY ==
[2021-01-01 09:22] VITALS: BP 111/58; PULSE 77; RESP 18; TEMP 36.8; O2SAT 98; BMI 23.8
[2021-01-01 09:50] VITALS: BP 137/69; PULSE 85; PULSE 99; RESP 18; O2SAT 99
--- NOTE | 2021-01-01 10:15 | HMH.PMPROC ---
- Procedure Date: 01/01/21 Time: 10:15 Anesthesiologist:: Amrit Espinosa MD Complications:: None Pre-procedure Diagnosis:: Sacroiliitis Post-procedure Diagnosis:: Same Indications for Procedure:: Patient is a pleasant 75-year-old white female who we are treating for bilateral hip pain. She is tender over both SI joints. She has a positive Ally's test bilaterally. She is positive Lalito test bilaterally. She is positive SI joint compression test bilaterally. She has a positive distraction test bilaterally. She does very well after these injections for several weeks. Will do repeat bilateral SI joint injection under fluoroscopy today. Procedure Details:: B/L SI joint injection under fluoroscopy Informed consent was obtained and the risks and benefits of the procedure was explained to the patient. The patient was taken to the procedure room and placed prone on the procedure table. The patient was prepped using ChloraPrep. The skin and subcutaneous tissues overlying the SI joints were anesthetized using lidocaine. I placed a 22-gauge needle first in the left SI joint and second in the right SI joint. Needle placement was confirmed with dye. After this we injected 5 mL bupivacaine 0.25% and Depo-Medrol 40 mg into each SI joint. Patient tolerated the procedure well with no complication. Plan and Disposition:: We will follow-up with her in 2 weeks. Will reevaluate symptoms at that time. She may be a candidate for SI joint stabilization if she does not get long-term relief with these injections.
[2021-01-01 12:19] VITALS: BP 117/37; PULSE 76; RESP 18; TEMP 36.4; O2SAT 98
== END 2021-01-01 09:50 | disposition home or self-care (01) ==
LOC: SC.PAINP 09:19
PROVIDERS: PCP Internal Medicine Adolescent Medicine; Visit Provider Anesthesiology
DX: M46.1 Sacroiliitis, not elsewhere classified (principal); E78.5 Hyperlipidemia, unspecified; M19.90 Unspecified osteoarthritis, unspecified site; E03.9 Hypothyroidism, unspecified; Z72.0 Tobacco use; Z90.49 Acquired absence of other specified parts of digestive tract; Z79.890 Hormone replacement therapy; Z79.899 Other long term (current) drug therapy
CPT/HCPCS: 27096; G0260; J1040; Q9966

== ENCOUNTER → 2021-01-18 11:40 | Outpatient (POV) | payer MEDICARE, SELFPAY ==
--- NOTE | 2021-01-18 12:16 | HMH.PAINSOAP ---
[facility] Pain Management SOAP Note Subjective:: Patient is a 75-year-old white female who presents today for follow-up. The patient is having low back pain with radiation into bilateral hips and buttock. She has had 2 rounds of bilateral SI joint injections. Patient's pain is worse on the left side. She says that she gets approximately 80% relief with the injections for about a week. Patient's pain does return. She has tried conservative therapies of physical therapy for more than 6 weeks and continues with home stretching. She is also tried anti-inflammatories with minimal relief. She does rate her pain a 4 out of [address] Espinosa did recommend the patient undergo the SI stabilization procedure if she did not get long-term relief with injections. Review of Systems General: No recent weight changes, no fever, no sleep disturbances Respiratory: No cough, no shortness of air, no recurring pulmonary infections Cardiovascular/peripheral vascular: No chest pain, no palpitations, no edema, no shortness of breath Gastrointestinal: No new onset incontinence, normal bowel movements reported Genitourinary: No new onset incontinence Musculoskeletal: Low back pain with radiation into bilateral buttock and hips, worse to left side Psychiatric: [Normal mood/affect] Neurological: [Denies weakness in extremities], [denies balance issues] Objective:: Physical exam General: Alert and oriented x3, no acute distress, pleasant and cooperative Lungs: Respirations even and unlabored, symmetrical chest expansion Eyes: PERRL Musculoskeletal: Flexion and extension of lumbar [spine] somewhat guarded secondary to pain, [antalgic gait noted], positive Ally's test, positive distraction test, positive compression test, positive Negro's test, positive Gaenslen's test and positive Lalito test Neurological: Speech clear, no gross sensory deficit Assessment:: Sacroiliitis, left Plan:: Patient got great relief with her SI injections at about 80% for 1 week. The patient's pain has returned. She has failed conservative therapies of physical therapy, injections, ice and heat and oral medications. Anti-inflammatories did not help the patient with her pain. Ice and heat therapies have not helped the patient. She does continue with home stretching. We will schedule the patient for a left SI corner lock stabilization procedure. She does report her pain to be worse on the left side. We will see her back after the procedure for reevaluation of symptoms. The patient is not diabetic and is not on any anticoagulation therapy. Risks and benefits of the procedure have been explained to the patient. Patient would like to proceed with the procedure. Patient has been instructed to contact the clinic with any concerns before the next appointment. Dr. Espinosa has reviewed this note and agrees with this plan of care. This note was dictated using voice recognition software and make contain errors or omissions. [facility] History I have reviewed the patient's past medical history: Yes Medical History: Reports:: Hyperlipidemia Denies:: Cancer, Diabetes Mellitus Type 1, Diabetes Mellitus Type 2, MRSA, Seizures *Have you ever received a pneumonia vaccine?: No *Have you received a flu vaccine this season?: No Other Medical History: Reports: Arthritis, Hypothyroidism, Thyroid Disease. Denies: Blood Transfusion Reaction Other Surgeries: Yes: No Previous Surgery, Cholecystectomy, Hysterectomy-Total, Sinus Surgery Amputation: No Fractures: No - *Social History Smoking Status: Current every day smoker Tobacco Type: cigarettes # Packs/Day (cigarettes): 1 Alcohol Intake: never Alcohol Intake Frequency:: holidays/special occasions only *Occupational Status:: employed Housing: house Household Members: spouse *Travel in the last 8 weeks: None Family Hx:: Cancer
[2021-01-18 12:55] VITALS: BP 120/69; PULSE 72; RESP 18; O2SAT 98; BMI 23.8
== END ==
PROVIDERS: Visit Provider Clinical Nurse Specialist Family Health
DX: M46.1 Sacroiliitis, not elsewhere classified (principal)
CPT/HCPCS: 99212; G0463

== ENCOUNTER → 2021-01-26 15:24 | Outpatient (POV) | payer MEDICARE, SELFPAY | PROVIDERS: Visit Provider Dermatology | DX: Z00.00 Encounter for general adult medical examination without abnormal findings (principal) ==

== ENCOUNTER → 2021-04-17 12:06 | Outpatient (CLI) | payer MEDICARE, SELFPAY | PROVIDERS: PCP Internal Medicine Adolescent Medicine; Visit Provider Ophthalmology | DX: Z01.812 Encounter for preprocedural laboratory examination (principal); U07.1 COVID-19 | CPT/HCPCS: C9803; U0003; U0005 ==

== ENCOUNTER 2021-05-18 08:24 | Day surgery (SDC) | payer MEDICARE, SELFPAY ==
[2021-05-12 10:59] VITALS: BMI 25.6
[2021-05-18] VITALS (7 sets, daily range): BP systolic 102–123; BP diastolic 51–71; PULSE 66–75; RESP 16–20; TEMP 36.5–36.7; O2SAT 97–100
== END 2021-05-18 12:07 | disposition home or self-care (01) ==
LOC: OR 08:26
PROVIDERS: PCP Internal Medicine Adolescent Medicine; Visit Provider Ophthalmology
DX: H25.813 Combined forms of age-related cataract, bilateral (principal); H02.831 Dermatochalasis of right upper eyelid; H02.834 Dermatochalasis of left upper eyelid; M19.90 Unspecified osteoarthritis, unspecified site; E03.9 Hypothyroidism, unspecified; E78.5 Hyperlipidemia, unspecified; Z79.890 Hormone replacement therapy; Z79.899 Other long term (current) drug therapy
CPT/HCPCS: 66984; V2632

== ENCOUNTER → 2021-06-12 12:24 | Outpatient (CLI) | payer MEDICARE, SELFPAY ==
[2021-06-12 13:07] LABS: Basophils # 0.1 K/mm3 (0-0.2); Basophils % 0.8 % (0.1-2.0); Eosinophils # 0.1 K/mm3 (0.0-0.4); Eosinophils % 1.2 % (0.1-12.0); Hematocrit 39.7 % (37.0-47.0); Hemoglobin 12.9 g/dL (12.2-16.2); Lymphocytes # 2.6 K/mm3 (0.7-4.5); Lymphocytes % 25.1 % (10-50); Mean Corpuscular HGB Conc 32.5 g/dL (31.8-35.4); Mean Corpuscular Hemoglobin 30.5 pg (27.0-31.2); Mean Corpuscular Volume 93.7 fl (81-99); Mean Platelet Volume 8.3 fl (7.4-10.4); Monocytes # 0.4 K/mm3 (0.1-1.0); Monocytes % 3.9 % (1.7-9.3); Platelet Count 292 K/mm3 (142-424); Red Blood Count 4.23 M/mm3 (4.20-5.40); Red Cell Distribution Width 13.8 % (11.5-17.5); White Blood Count 10.2 K/mm3 (4.8-10.8)
[2021-06-12 14:39] LABS: Blood Urea Nitrogen 16 mg/dl (7-17); Calcium 9.8 mg/dl (8.4-10.2); Carbon Dioxide 28 mmol/L (22.0-30.0); Chloride 105 mmol/L (98-107); Estimated Glomerular Filt Rate 70 ml/min (>60); GFR (African American) 85 ML/MIN (>60); Glucose 91 mg/dl (74-100); Sodium 139 mmol/L (136-145)
== END ==
PROVIDERS: Anesthesiology Pain Medicine; PCP Internal Medicine Adolescent Medicine; Visit Provider Internal Medicine Adolescent Medicine
DX: Z01.812 Encounter for preprocedural laboratory examination (principal); Z11.52 Encounter for screening for COVID-19; M53.3 Sacrococcygeal disorders, not elsewhere classified
CPT/HCPCS: 36415; 80048; 85025; C9803; U0003; U0005

== ENCOUNTER 2021-06-15 10:06 | Day surgery (SDC) | payer MEDICARE, SELFPAY ==
[2021-06-14 10:57] VITALS: BMI 25.6
[2021-06-15] VITALS (12 sets, daily range): BP systolic 93–132; BP diastolic 50–74; PULSE 75–96; RESP 12–21; TEMP 36.3–36.6; O2SAT 92–100
--- NOTE | 2021-06-15 13:19 | P.PN_ITS ---
[facility] Anesthesia Checklist - Patient Identification Patient Identification: Arm Band - Structural Data Admitted From: Home Planned Operative Procedure/s: Left Sacroiliac Joint Fusion Consent for Planned Operative Procedure(s) Verified: Yes Verified Documents: Surgical Consent, History and Physical - NPO Status Verified Time NPO: 00:00 - Additional verifications Anesthesia Reactions: No Hx Blood Transfusions: No Blood Transfusion Reaction: No - Airway Assessment C-Spine Mobility Assessed: Yes (mp2) TMJ Mobility Assessed: Yes Dentition: Good Dentition - Neurological Assessment Level of Consciousness: Awake, Alert - Anesthesia Plan Anesthesia Risk discussed: Yes Anesthesia Plan: Verified ASA Class: II Anesthesia Type: General [facility] History I have reviewed the patient's past medical history: Yes Medical History: Reports:: Cancer (face), Hyperlipidemia Denies:: Diabetes Mellitus Type 1, Diabetes Mellitus Type 2, Internal Pacemaker, MRSA, Seizures *Have you ever received a pneumonia vaccine?: Yes *Have you received a flu vaccine this season?: Yes Other Medical History: Reports: Arthritis, Hypothyroidism, Thyroid Disease. Denies: Blood Transfusion Reaction Anesthesia experience/problems:: nac Laterality Cases: Bilateral: Tonsillectomy Other Surgeries: Yes: Cholecystectomy, Hysterectomy-Total, Sinus Surgery. No: Pacemaker Amputation: No Fractures: No - *Social History Last grade of school completed: High school graduate Smoking Status: Former smoker Tobacco Type: cigarettes # Packs/Day (cigarettes): 1 #Yrs smoked (if former smoker): 60 Alcohol Intake: never Alcohol Intake Frequency:: holidays/special occasions only Substance Use Type: denies use *Occupational Status:: retired Housing: house Household Members: spouse *Travel in the last 8 weeks: None Family Hx:: Cancer
--- NOTE | 2021-06-15 14:47 | P.OP_ITS ---
Date of procedure: 06/15/21 Pre-op Diagnosis:: Left sacroiliitis Post-op Diagnosis:: Same Procedure performed:: Left-sided SI joint stabilization with the cornerloc system Surgeon:: Ailyn Greenwood MD DELIVERY STOCK CLERK:: Kyle Jaimes Anesthesia: GETA Estimated blood loss (mL): 5 Clinical Note:: Patient is a very pleasant 75-year-old white female who presents today with left-sided sacroiliitis. She has tried and failed conservative treatment including oral pain medications and home stretching program for greater than 6 weeks as well as injection therapy. Unfortunately she has exhausted all conservative measures at this time. The plan for today is for the patient to undergo a left-sided SI joint stabilization procedure with the cornerloc system. Operative findings:: n/a Operative note:: Informed consent was obtained and the risk and benefits of the procedure was explained to the patient. Patient was taken to the operating room placed prone on the procedure table. Patient was prepped and draped in sterile fashion. A lateral view of the sacrum with C-arm was taken to make sure it was out of ante version. We then did an oblique view of the right sacroiliac joint. We lined up the anterior and posterior sides of the joint to achieve a [place] . A line was drawn on the skin with the SI joint. The superior and inferior aspect of the joint were anesthetized using lidocaine. The superior and inferior aspect of the joint were marked off. 1 cm medial and 1 cm superiorly into the upper quadrant and 1 cm medial and 1 cm distal a 1 1/2 cm longitudinal incisions were made through the skin and subcutaneous tissues. Guidepins were then placed superior and inferior at a 90 degree angle to each other under C-arm guidance through the incision was made into the superior third and inferior third of the SI joint. Lateral C-arm view was then taken to check the depth of the pins into the SI joint. On the lateral view the joint finder was placed over the guidepin into the appropriate position. The working cannula retractor was then placed over the joint finder into the SI joint into the appropriate position and depth. The joint finder and guidepin were removed. The SI joint was drilled to remove cartilage and to get into the subchondral bone of the sacrum and ilium. The broach was then used to prepare a triangular groove into both the sacrum and ilium for insertion of stabilization grafts. A collagen spine was then placed into the prepared space and the stabilization graft was placed. This was done both superiorly inferiorly into the SI joint. The cannulated retractor was removed. The incisions were then closed with 2-0 Vicryl followed by 4-0 nylon. Dressings were placed and the patient was taken recovery in stable condition. Patient tolerated the procedure well with no complications. Plan & disposition: We will follow-up with this patient in 1 week for wound ch conchis and 2 weeks for staple removal. Also prescribed Percocet 5/325 1 tablet p.o. every 4-6 hours #25 Bactrim DS 1 tablet p.o. twice daily for 5 days #10. Juan Jose and prior drug screens were reviewed and appropriate. Condition: stable Disposition: PACU Complications:: none
--- NOTE | 2021-06-15 14:55 | P.PN_ITS ---
[facility] Anesthesia Record Part I Intake, IV Amount: 1,200 Estimated blood loss (mL): 0 Urine output (mL): 0 Blood Pressure: 118/68 SaO2: 92 Pulse Rate: 96 Respiratory Rate: 12 Temperature: 97.8 F Patient is:: Awake, Stable Stable to PACU at:: 14:50
--- NOTE | 2021-06-16 13:56 | P.PN_ITS ---
[facility] Anesthesia Record Part II Discharge Time: 15:40 Destination: Surgical Day Care (OP Surgery) PACU nurse assessment reviewed?: Yes Patient Condition:: Good Anesthesia Complications:: None Swallowing reflex intact?: Yes Cyanosis?: No Blood Pressure: 93/51 Pulse Rate: 76 Temperature: 97.7 F Mental Status: Alert & Oriented Pain level:: 5 Nausea and/or vomitting:: None Intake, IV Amount: 0
[2021-06-16 13:57] VITALS: BP 93/51; PULSE 76; TEMP 36.5
== END 2021-06-15 16:37 | disposition home or self-care (01) ==
LOC: OR 10:07
PROVIDERS: PCP Internal Medicine Adolescent Medicine; Visit Provider Anesthesiology Pain Medicine
PROC: (CPT 27279; principal; 2021-06-15 11:30)
DX: M46.1 Sacroiliitis, not elsewhere classified (principal); I10 Essential (primary) hypertension; E78.5 Hyperlipidemia, unspecified; Z85.9 Personal history of malignant neoplasm, unspecified; M19.90 Unspecified osteoarthritis, unspecified site; E03.9 Hypothyroidism, unspecified; Z80.9 Family history of malignant neoplasm, unspecified; Z79.890 Hormone replacement therapy; Z79.899 Other long term (current) drug therapy
CPT/HCPCS: 27279; 96374; C1713; J2405; J2710

== ENCOUNTER → 2021-07-05 13:44 | Outpatient (POV) | payer MEDICARE, SELFPAY ==
--- NOTE | 2021-07-05 14:21 | P.CONS_ITS ---
[facility] Pain Management SOAP Note Subjective:: Patient is a pleasant 75-year-old female who presents today for follow-up after a left-sided SI joint stabilization we had the [facility] system on June 15, 2021. Patient is current being treated for sacroiliitis. After procedure, patient continues to have 80 to 90% relief. She rates her pain today is to be 0 out of 10. Denies any issues after procedure. She is here today for staple removal. Review of Systems: General: No recent weight changes, no fever, no sleep disturbances Respiratory: No cough, no shortness of air, no recurring pulmonary infections Cardiovascular/peripheral vascular: No chest pain, no palpitations, no edema, no shortness of breath Gastrointestinal: No new onset incontinence, normal bowel movements reported Genitourinary: No new onset incontinence Musculoskeletal: Improving left SI pain Psychiatric: [Normal mood/affect] Neurological: [Denies weakness in extremities], [denies balance issues] Objective:: Physical Exam: General: Alert and oriented x3, no acute distress, pleasant and cooperative, [on room air] Lungs: Respirations even and unlabored, symmetrical chest expansion Eyes: PERRL Musculoskeletal: Increased range of motion of the left hip Skin: Surgical incisions are healing well and well approximated. There is no drainage, erythema, and swelling. Neurological: Speech clear, no gross sensory deficit Assessment:: Sacroiliitis Status post left SI joint stabilization procedure Plan:: Patient continues to have increased relief after her left SI joint stabilization procedure. We remove her sutures today. Surgical incisions are healing well and well approximated. There is no drainage, erythema, and swelling. Placed Steri-Strips today. Follow-up in 1 month Patient has been instructed to contact the clinic with any concerns before the next appointment. Dr. Espinosa has reviewed this note and agrees with this plan of care. This note was dictated using voice recognition software and make contain errors or omissions. [facility] History Medical History: Reports:: Cancer (face), Hyperlipidemia Denies:: Diabetes Mellitus Type 1, Diabetes Mellitus Type 2, Internal Pacemaker, MRSA, Seizures *Have you ever received a pneumonia vaccine?: Yes *Have you received a flu vaccine this season?: Yes Other Medical History: Reports: Arthritis, Hypothyroidism, Thyroid Disease. Denies: Blood Transfusion Reaction Laterality Cases: Bilateral: Tonsillectomy Other Surgeries: Yes: No Previous Surgery, Cholecystectomy, Hysterectomy-Total, Sinus Surgery. No: Pacemaker Amputation: No Fractures: No - *Social History Smoking Status: Former smoker Tobacco Type: cigarettes # Packs/Day (cigarettes): 1 #Yrs smoked (if former smoker): 60 Alcohol Intake: never Alcohol Intake Frequency:: holidays/special occasions only Substance Use Type: denies use *Occupational Status:: retired Housing: house Household Members: spouse *Travel in the last 8 weeks: None Family Hx:: Cancer
[2021-07-05 14:35] VITALS: BP 108/50; PULSE 89; RESP 18; TEMP 36.7; O2SAT 97; BMI 27.6
== END ==
PROVIDERS: Visit Provider Student in an Organized Health Care Education/Training Program
DX: M46.1 Sacroiliitis, not elsewhere classified (principal); Z98.890 Other specified postprocedural states
CPT/HCPCS: 99212; G0463

== ENCOUNTER → 2021-07-17 11:09 | Outpatient (CLI) | payer MEDICARE, SELFPAY | PROVIDERS: Visit Provider Ophthalmology | DX: Z01.812 Encounter for preprocedural laboratory examination (principal); Z11.52 Encounter for screening for COVID-19 | CPT/HCPCS: C9803; U0003; U0005 ==

== ENCOUNTER 2021-07-20 08:28 | Day surgery (SDC) | payer MEDICARE, SELFPAY ==
[2021-07-14 14:27] VITALS: BMI 25.1
[2021-07-20 08:58] VITALS: BP 110/59; PULSE 86; RESP 18; TEMP 36.6; O2SAT 99
[2021-07-20 09:56] VITALS: RESP 18
[2021-07-20 10:14] VITALS: BP 112/64; PULSE 71; RESP 18; TEMP 36.4; O2SAT 99
== END 2021-07-20 10:23 | disposition home or self-care (01) ==
LOC: OR 08:29
PROVIDERS: PCP Internal Medicine Adolescent Medicine; Visit Provider Ophthalmology
DX: H25.813 Combined forms of age-related cataract, bilateral (principal); H02.831 Dermatochalasis of right upper eyelid; H02.834 Dermatochalasis of left upper eyelid; M19.90 Unspecified osteoarthritis, unspecified site; E78.5 Hyperlipidemia, unspecified; E03.9 Hypothyroidism, unspecified; Z79.890 Hormone replacement therapy; Z79.899 Other long term (current) drug therapy
CPT/HCPCS: 66984; V2632

== ENCOUNTER → 2021-08-03 13:04 | Outpatient (POV) | payer MEDICARE, SELFPAY | PROVIDERS: Visit Provider Dermatology | DX: Z00.00 Encounter for general adult medical examination without abnormal findings (principal) ==

== ENCOUNTER → 2021-08-05 14:38 | Outpatient (POV) | payer MEDICARE, SELFPAY ==
[2021-08-05 15:14] VITALS: BP 114/33; PULSE 82; RESP 18; TEMP 36.1; O2SAT 98; BMI 25.6
--- NOTE | 2021-08-05 15:37 | HMH.PAINSOAP ---
[facility] Pain Management SOAP Note Subjective:: Patient is a pleasant 75-year-old female who presents today for follow-up. Patient is currently being treated for left-sided sacroiliitis. Patient had a left sided SI joint stabilization procedure with the Cornerloc system on June 15, 2021. Patient states that she continuously have relief with the procedure. She rates her pain today 0 out of 10. She has been able to walk longer and has been able to increase her activity. The only issue that the patient has is that when she does walk around the grocery store, she starts to have some pain after a while. She is finding scheduled medication. Juan Jose [phone] with an active morphine equivalent of 0. Review of Systems: General: No recent weight changes, no fever, no sleep disturbances Respiratory: No cough, no shortness of air, no recurring pulmonary infections Cardiovascular/peripheral vascular: No chest pain, no palpitations, no edema, no shortness of breath Gastrointestinal: No new onset incontinence, normal bowel movements reported Genitourinary: No new onset incontinence Musculoskeletal: Improving left hip pain Psychiatric: [Normal mood/affect] Neurological: [Denies weakness in extremities], [denies balance issues] Objective:: Physical Exam: General: Alert and oriented x3, no acute distress, pleasant and cooperative Lungs: Respirations even and unlabored, symmetrical chest expansion Eyes: PERRL Musculoskeletal: Increased range of motion of the left SI. Negative SI exam Neurological: Speech clear, no gross sensory deficit Assessment:: Left-sided sacroiliitis Plan:: I discussed with the patient that she might still be healing around her left SI joint. I am hopeful that she is going to be able to increase her activity some more after a while. She does note that she does not have pain at rest. We will follow-up with this patient in 3 months. If the patient's pain does come back, we will consider doing a repeat SI injection or possibly an SI RFA. Patient has been instructed to contact the clinic with any concerns before the next appointment. Dr. Espinosa has reviewed this note and agrees with this plan of care. This note was dictated using voice recognition software and make contain errors or omissions. [facility] History Medical History: Reports:: Cancer (face), Hyperlipidemia Denies:: Diabetes Mellitus Type 1, Diabetes Mellitus Type 2, Internal Pacemaker, MRSA, Seizures *Have you ever received a pneumonia vaccine?: Yes *Have you received a flu vaccine this season?: Yes Other Medical History: Reports: Arthritis, Hypothyroidism, Thyroid Disease. Denies: Blood Transfusion Reaction Laterality Cases: Bilateral: Tonsillectomy Other Surgeries: Yes: No Previous Surgery, Cholecystectomy, Hysterectomy-Total, Sinus Surgery. No: Pacemaker Amputation: No Fractures: No - *Social History Smoking Status: Former smoker Tobacco Type: cigarettes # Packs/Day (cigarettes): 1 #Yrs smoked (if former smoker): 60 Alcohol Intake: never Alcohol Intake Frequency:: holidays/special occasions only Substance Use Type: denies use *Occupational Status:: retired Housing: house Household Members: spouse *Travel in the last 8 weeks: None Family Hx:: Cancer
== END ==
PROVIDERS: Visit Provider Student in an Organized Health Care Education/Training Program
DX: M46.1 Sacroiliitis, not elsewhere classified (principal)
CPT/HCPCS: 99212; G0463

== ENCOUNTER → 2021-11-04 13:07 | Outpatient (POV) | payer MEDICARE, SELFPAY ==
[2021-11-04 13:14] VITALS: BP 103/70; PULSE 95; RESP 20; BMI 26.4
--- NOTE | 2021-11-04 13:29 | HMH.PAINSOAP ---
[facility] Pain Management SOAP Note Subjective:: Patient is a pleasant 76-year-old female that presents today for follow-up. We are only treating the patient for left-sided sacroiliitis. Today the patient rates her pain a 3 out of 10. She states all her pain is in her left SI area and describes it just as an aching sensation that is worse with activity. She can not tolerate sitting, standing, walking for long distances. Patient did have a SI joint stabilization on the left side using the corner lock system on June 15, 2021. Patient states that she has not had significant relief with this procedure. She states she is no better no worse. Patient does currently take diclofenac 75 mg twice a day and cyclobenzaprine 10 mg twice a day by Dr. Goldstein. She denies any side effects from these medications. She does state that these medications adequately and her pain. Her Juan Jose is [id number]. It has been reviewed and appropriate. Review of Systems: General: No recent weight changes, no fever, no sleep disturbances Respiratory: No cough, no shortness of air, no recurring pulmonary infections Cardiovascular/peripheral vascular: No chest pain, no palpitations, no edema, no shortness of breath Gastrointestinal: No new onset incontinence, normal bowel movements reported Genitourinary: No new onset incontinence Musculoskeletal: Low back pain left side Psychiatric: [Normal mood/affect] Neurological: [Denies weakness in extremities], [denies balance issues] Objective:: Physical Exam: General: Alert and oriented x3, no acute distress, pleasant and cooperative Lungs: Respirations even and unlabored, symmetrical chest expansion Eyes: PERRL Musculoskeletal: Flexion and extension of lumbar [spine] somewhat guarded secondary to pain, [antalgic gait noted]. Positive left Ally's, Negro's, Gaenslen's, compression and distraction exam. Point tenderness along left lumbar spine/SI Neurological: Speech clear, no gross sensory deficit Assessment:: Left sacroiliitis Plan:: Patient still has pain in her left SI region. She is adequately managed with her diclofenac and Flexeril. I have discussed with the patient regarding repeating SI injection or RFA of this area. We could even possibly do a cluneal block in the future. Risk and benefits were discussed with the patient. Patient would like to wait at this time. Patient will follow up in 3 months. Patient will return to clinic in 3 months for reevaluation of symptoms and follow-up. Patient has been instructed to contact the clinic with any concerns before the next appointment. Dr. Espinosa has reviewed this note and agrees with this plan of care. This note was dictated using voice recognition software and make contain errors or omissions. [facility] History I have reviewed the patient's past medical history: Yes Medical History: Reports:: Cancer (face), Hyperlipidemia Denies:: Diabetes Mellitus Type 1, Diabetes Mellitus Type 2, Internal Pacemaker, MRSA, Seizures *Have you ever received a pneumonia vaccine?: Yes *Have you received a flu vaccine this season?: Yes Other Medical History: Reports: Arthritis, Hypothyroidism, Thyroid Disease. Denies: Blood Transfusion Reaction Laterality Cases: Bilateral: Tonsillectomy Other Surgeries: Yes: No Previous Surgery, Cholecystectomy, Hysterectomy-Total, Sinus Surgery. No: Pacemaker Amputation: No Fractures: No - *Social History Smoking Status: Former smoker Tobacco Type: cigarettes # Packs/Day (cigarettes): 1 #Yrs smoked (if former smoker): 60 Alcohol Intake: never Alcohol Intake Frequency:: holidays/special occasions only Substance Use Type: denies use *Occupational Status:: other Housing: house Household Members: spouse *Travel in the last 8 weeks: None Family Hx:: Cancer
== END ==
PROVIDERS: PCP Internal Medicine Adolescent Medicine; Visit Provider Nurse Practitioner Family
DX: M46.1 Sacroiliitis, not elsewhere classified (principal)
CPT/HCPCS: 99212; G0463

== ENCOUNTER → 2022-02-03 12:53 | Outpatient (POV) | payer MEDICARE, SELFPAY ==
[2022-02-03 13:05] VITALS: BP 109/45; PULSE 75; RESP 18; O2SAT 98; BMI 26.4
--- NOTE | 2022-02-03 13:19 | EXP.PAIN.SOA ---
[facility] Pain Management SOAP Note Subjective:: Patient is a pleasant 76-year-old female who presents today for 3-month follow-up. We are currently treating the patient for sacroiliitis. Today she rates her pain a 3 out of 10. She states the pain is all along her low back at the left side that radiates into her left hip. Patient describes this as an aching, throbbing sensation that is worse with increased activity. Patient did do a left SI stabilization procedure using the corner lock system on June 15, 2021. Initially patient states she did have significant relief of approximately 80 to 90% however that was short-lived. Patient states she continues to have significant pain in this area and often cannot tolerate prolonged sitting, standing, walking due to the pain. Patient states this does affect her abilities to perform activities of daily living. Patient is very active and would like to stay active and likes to take walks frequently however this has been limited due to her pain. Patient is managed with diclofenac 75 mg twice a day and cyclobenzaprine 10 mg twice a day by Dr. Goldstein's office. Patient denies any side effects from this medication. She states these medications do help with her pain symptoms. Patient is not on any scheduled medications at this time. At previous visits we did discuss the possibility of doing a ablation to her left SI joint. Patient states she is interested in proceeding forward with this option. Her Juan Jose is [id number] Injections: 01/11/2021?bilateral SI injections 80% relief 10/30/2020?bilateral SI injections 70 to 80% relief 05/21/2019 bilateral SI injections 80% relief lasting 1 month 04/16/2019 bilateral SI injections 80% relief 02/20/20 19 bilateral SI injections 80% relief Review of Systems: General: No recent weight changes, no fever, no sleep disturbances Respiratory: No cough, no shortness of air, no recurring pulmonary infections Cardiovascular/peripheral vascular: No chest pain, no palpitations, no edema, no shortness of breath Gastrointestinal: No new onset incontinence, normal bowel movements reported Genitourinary: No new onset incontinence Musculoskeletal: Low back pain Psychiatric: [Normal mood/affect] Neurological: [Denies weakness in extremities], [denies balance issues] Objective:: Physical Exam: General: Alert and oriented x3, no acute distress, pleasant and cooperative Lungs: Respirations even and unlabored, symmetrical chest expansion Eyes: PERRL Musculoskeletal: Flexion and extension of lumbar [spine] somewhat guarded secondary to pain, [antalgic gait noted]. Extreme point tenderness along left SI and positive left Ally's, Negro's, Gaenslen's, compression and distraction exam Neurological: Speech clear, no gross sensory deficit Assessment:: Chronic sacroiliitis Plan:: Patient is experiencing significant pain in her low back along the left side that radiates into her left hip. Patient did have limited range of motion of her lumbar spine during today's visit and extreme point tenderness along her left SI and positive left Ally's, Negro's, Gaenslen's, compression and distraction exam. Patient has had 5 sets of bilateral SI injections in the past that all provided at least 70 to 80% relief however they only lasted for short period of time. I have discussed with the patient that she may benefit from a RFA of her left SI joint. Risk and benefits were discussed with the patient. She would like to proceed forward with this plan of care. I will also prescribe the patient a compounding cream at today's visit. We will submit to insurance for a left SI RFA and contact the patient once we have approval. Patient has been instructed to contact the clinic with any concerns before the next appointment. Dr. Espinosa has reviewed this note and agrees with this plan of care. This note was dictated using voice recognition software and make contain errors or omissions. PFSH PFSH Social History Smoking Status: Fo
== END ==
PROVIDERS: PCP Internal Medicine Adolescent Medicine; Visit Provider Nurse Practitioner Family
DX: M46.1 Sacroiliitis, not elsewhere classified (principal); Z79.899 Other long term (current) drug therapy
CPT/HCPCS: 99212; G0463

== ENCOUNTER 2022-03-08 14:23 | Day surgery (SDC) | payer MEDICARE, SELFPAY ==
[2022-03-08 14:39] VITALS: BP 110/80; PULSE 81; RESP 18; TEMP 36.3; O2SAT 98; BMI 26.4
[2022-03-08 14:43] VITALS: BP 116/62; PULSE 88; RESP 18; O2SAT 97
[2022-03-08 14:44] VITALS: BP 116/62; PULSE 88; RESP 18; O2SAT 97
[2022-03-08 15:02] VITALS: BP 142/68; PULSE 81; RESP 18; O2SAT 98
--- NOTE | 2022-03-08 15:06 | P.PCN_ITS ---
Procedure Date: 03/08/22 Time: 14:45 Anesthesiologist:: Jamil Faria CRNA Complications:: None Pre-procedure Diagnosis:: Chronic right sacroiliitis. Post-procedure Diagnosis:: Same. Indications for Procedure:: Very pleasant 76-year-old female comes our clinic today for right sacroiliac carol nt radiofrequency ablation. Patient rates her left posterior hip pain 7/10. Patient has had left SI joint injections in the past with significant improvement. However, the relief was 1 to 3 weeks in duration. Patient had corner lock system implant May 2021. She reports overall minimal relief if any at that time. Procedure Details:: Details of the procedure were explained to the patient. The patient taken the procedure room placed in the prone position. The area over the left posterior hip was cleansed using chlorhexidine as a cleansing solution. At this time using fluoroscopy guidance 2 markers were placed at the lower one third medial border of the left sacroiliac joint. Skin and subcutaneous tissue was anesthetized using 1% lidocaine and 25-gauge needle. 2 RFA needles were placed at each marker. We underwent sensory stimulation. There is good sensory stimulation at 0.8 V. We underwent motor stimulation. There is no motor st imulation at 2 V. We then anesthetized these needles with lidocaine and Depo- Medrol. I used a total of 40 mg Depo-Medrol for both levels. I then burned both sites for 90 seconds at 80 ?C. Patient tolerated the procedure well with no complication. Plan and Disposition:: Patient was discharged without incident.
== END 2022-03-08 15:02 | disposition home or self-care (01) ==
PROVIDERS: PCP Internal Medicine Adolescent Medicine; Visit Provider Nurse Anesthetist, Certified Registered
DX: M46.1 Sacroiliitis, not elsewhere classified (principal)
CPT/HCPCS: 64625; J1040

== ENCOUNTER → 2022-04-13 14:03 | Outpatient (POV) | payer MEDICARE, SELFPAY ==
--- NOTE | 2022-04-13 15:07 | EXP.PAIN.SOA ---
[facility] Pain Management SOAP Note Subjective:: Patient is a pleasant 76-year-old female who presents today for follow-up of right SI RFA on 03/08/2022. We are currently treating the patient for chronic sacroiliitis, low back pain with lumbar radiculopathy symptoms. Today she rates her pain a 4 out of 10. Patient states that she did not notice any improvement following this procedure. Patient states she continues to have low back pain that radiates down to her right foot. She does describe this as a achy, throbbing sensation that is worse with increased activity or prolonged sitting, standing, walking. Patient has had a coronary lock procedure in the past that she states she initially did get relief with but only for a couple of months. Patient is currently managed with diclofenac 75 mg twice a day and Flexeril 10 mg twice a day from her primary care doctor patient denies any side effects from this medication. Patient states these medications do help manage her pain symptoms. Patient is also prescribed compounding cream that she states does give additional relief. Her Juan Jose is [id number]. Its been reviewed and appropriate. Review of Systems: General: No recent weight changes, no fever, no sleep disturbances Respiratory: No cough, no shortness of air, no recurring pulmonary infections Cardiovascular/peripheral vascular: No chest pain, no palpitations, no edema, no shortness of breath Gastrointestinal: No new onset incontinence, normal bowel movements reported Genitourinary: No new onset incontinence Musculoskeletal: Low back pain, right leg pain Psychiatric: [Normal mood/affect] Neurological: [Denies weakness in extremities], [denies balance issues] Objective:: Physical Exam: General: Alert and oriented x3, no acute distress, pleasant and cooperative Lungs: Respirations even and unlabored, symmetrical chest expansion Eyes: PERRL Musculoskeletal: Flexion and extension of lumbar [spine] somewhat guarded secondary to pain, [antalgic gait noted] Neurological: Speech clear, no gross sensory deficit ORT score updated with low risk Assessment:: Low back pain with lumbar radiculopathy symptoms, chronic sacroiliitis Plan:: Patient continues to experience significant pain in her low back along the right side with radiating symptoms into her right leg down to her foot. Patient did have limited range of motion of her lumbar spine. Patient has tried and failed conservative therapy such as oral medications, heat and ice, injection therapy, physical therapy and at home stretching and exercise for longer than 6 weeks. I will order the patient an updated MRI without contrast of her lumbar spine. Patient will return to clinic following this imaging for evaluation of symptoms and follow-up. Patient has been instructed to contact the clinic with any concerns before the next appointment. Dr. Espinosa has reviewed this note and agrees with this plan of care. This note was dictated using voice recognition software and make contain errors or omissions. [facility] Disclaimer: The information contained in this section may have been updated after the patient was seen, as this information can be updated by other users. Medical History (Updated 03/08/22 @ 14:41 by Amelia Alfaro RN) Arthritis Endometriosis Hyperlipemia Hypothyroidism Surgical History (Updated 03/08/22 @ 14:41 by Amelia Alfaro RN) Hx of cholecystectomy Previous back surgery Family History (Updated 03/08/22 @ 14:41 by Amelia Alfaro RN) Other No significant family history Social History Smoking Status: Former smoker pack-years: 60 second hand exposure: No alcohol intake: never substance use type: denies use current occupational status: retired Travel in the last 8 weeks: None household members: spouse housing: house current occupational exposures/hazards: No caffeine: Yes
[2022-04-13 15:22] VITALS: BP 115/35; PULSE 80; RESP 18; O2SAT 97; BMI 27.8
== END ==
PROVIDERS: PCP Internal Medicine Adolescent Medicine; Visit Provider Nurse Practitioner Family
DX: M46.1 Sacroiliitis, not elsewhere classified (principal); M54.16 Radiculopathy, lumbar region; M54.50 Low back pain, unspecified
CPT/HCPCS: 99212; G0463

== ENCOUNTER → 2022-04-19 10:41 | Outpatient (CLI) | payer MEDICARE, SELFPAY ==
--- NOTE | 2022-04-19 10:46 | MR_ITS ---
FINAL REPORT TECHNIQUE: Multiplanar MR without contrast CLINICAL HISTORY: LOWER BACK PAIN for years left sided leg pain FINDINGS: There are mild chronic compression fractures of L4 and L5. There is minimal degenerative retrolisthesis of L2 on 3. There is grade 1 anterior listhesis of L4 on 5 and L5 on S1. Marrow signal pattern is unremarkable. T12-L1: Minimal annular disc bulge. L1-2: Minimal annular disc bulge. L2-3: Moderate annular disc bulge and facet arthropathy. Mild central canal stenosis. Moderate bilateral neural foraminal narrowing. L3-4: Moderate annular disc bulge and severe facet arthropathy. Severe central canal stenosis. Severe right and moderate left neural foraminal narrowing. L4-5: Mild annular disc bulge and severe facet arthropathy. Severe central canal stenosis, largely related to spondylolisthesis. Severe bilateral neural foraminal narrowing. L5-S1: Mild annular disc bulge. Mild facet arthropathy. Mild central canal stenosis. Mild right and severe left neural foraminal narrowing. IMPRESSION: Advanced canal stenosis at L3-4 and L4-5 associated with neural foraminal narrowing. Reviewed, Interpreted and Dictated by Oralia Ibanez MD Transcribed by Maegan Jose Authenticated and [facility]
== END ==
PROVIDERS: PCP Internal Medicine Adolescent Medicine; Visit Provider Nurse Practitioner Family
DX: M54.50 Low back pain, unspecified (principal)
CPT/HCPCS: 72148; 76376

== ENCOUNTER → 2022-05-02 11:20 | Outpatient (POV) | payer MEDICARE, SELFPAY ==
[2022-05-02 11:43] VITALS: BP 121/57; PULSE 98; RESP 18; O2SAT 97; BMI 27.8
--- NOTE | 2022-05-02 12:37 | EXP.PAIN.SOA ---
[facility] Pain Management SOAP Note Subjective:: Patient is a pleasant 76-year-old female who presents today for follow-up of lumbar MRI. We are currently treating the patient for chronic sacroiliitis, low back pain with lumbar radiculopathy symptoms. Today she rates her pain a 7 out of 10. Patient denies any new trauma or injury. Patient denies any change location or type of pain she experiences. Patient does states she continues to have low back pain that radiates down her legs to her toes. Patient does state that is primarily on the left side however she does have occasional right-sided as well. Patient does describe this as a aching, throbbing sensation that is worse with increased activity. Patient frequently cannot tolerate prolonged sitting, standing, walking. Patient has had a SI stabilization procedure in the past however she only got a few months worth of relief. Patient is currently managed with diclofenac 75 mg twice a day and Flexeril 10 mg twice a day from her primary care doctor. Patient denies any side effects from these medications. Patient is prescribed compounding cream that she does state provides additional improvement. Patient has had multiple injections in the past including SI and her last procedure was a right SI RFA on 03/08/2022. Patient states this did provide some additional improvement however it was very painful for the actual procedure. Patient did have a friend that had sciatic issues who is on TRP sciatica therapy and she is interested whether or not if we have any details regarding this treatment. Her Juan Jose is [phone]. Its been reviewed and appropriate. Review of Systems: General: No recent weight changes, no fever, no sleep disturbances Respiratory: No cough, no shortness of air, no recurring pulmonary infections Cardiovascular/peripheral vascular: No chest pain, no palpitations, no edema, no shortness of breath Gastrointestinal: No new onset incontinence, normal bowel movements reported Genitourinary: No new onset incontinence Musculoskeletal: Low back pain Psychiatric: [Normal mood/affect] Neurological: [Denies weakness in extremities], [denies balance issues] Objective:: Physical Exam: General: Alert and oriented x3, no acute distress, pleasant and cooperative Lungs: Respirations even and unlabored, symmetrical chest expansion Eyes: PERRL Musculoskeletal: Flexion and extension of lumbar [spine] somewhat guarded secondary to pain, [antalgic gait noted] Neurological: Speech clear, no gross sensory deficit FINAL REPORT TECHNIQUE: Multiplanar MR without contrast CLINICAL HISTORY: LOWER BACK PAIN for years ? left sided leg pain FINDINGS: There are mild chronic compression fractures of L4 and L5. There is minimal degenerative retrolisthesis of L2 on 3.? There is grade 1 anterior listhesis of L4 on 5 and L5 on S1.? Marrow signal pattern is unremarkable.? T12-L1:? Minimal annular disc bulge.? L1-2:? Minimal annular disc bulge.? L2-3:? Moderate annular disc bulge and facet arthropathy.? Mild central canal stenosis.? Moderate bilateral neural foraminal narrowing.? L3-4: Moderate annular disc bulge and severe facet arthropathy. Severe central canal stenosis.? Severe right and moderate left neural foraminal narrowing.? L4-5:? Mild annular disc bulge and severe facet arthropathy.? Severe central canal stenosis, largely related to spondylolisthesis.? Severe bilateral neural foraminal narrowing.? L5-S1:? Mild annular disc bulge.? Mild facet arthropathy.? Mild central canal stenosis.? Mild right and severe left neural foraminal narrowing. IMPRESSION: Advanced canal stenosis at L3-4 and L4-5 associated with neural foraminal narrowing. Reviewed, Interpreted and Dictated by Oralia Ibanez MD Transcribed by Maegan Jose Authenticated and [facility] Assessment:: Degenerative disc disease of lumbar spine with lumbar radiculopathy symptoms,
== END ==
PROVIDERS: PCP Internal Medicine Adolescent Medicine; Visit Provider Nurse Practitioner Family
DX: M51.16 Intervertebral disc disorders with radiculopathy, lumbar region (principal); M46.1 Sacroiliitis, not elsewhere classified; M47.26 Other spondylosis with radiculopathy, lumbar region; M48.50XG Collapsed vertebra, not elsewhere classified, site unspecified, subsequent encounter for fracture with delayed healing
CPT/HCPCS: 99212; G0463

== ENCOUNTER 2022-06-07 11:30 | Day surgery (SDC) | payer MEDICARE, SELFPAY ==
[2022-06-07 11:43] VITALS: BP 113/60; PULSE 92; RESP 18; TEMP 36.6; O2SAT 100; BMI 27.8
[2022-06-07 11:58] VITALS: BP 109/44; PULSE 93; RESP 18; O2SAT 97
[2022-06-07 11:59] VITALS: BP 109/44; PULSE 93; RESP 18; O2SAT 97
[2022-06-07 12:02] VITALS: BP 107/77; PULSE 78; RESP 18; O2SAT 100
--- NOTE | 2022-06-07 12:02 | EXP.PAIN.PRO ---
Procedure Date: 06/07/22 Time: 11:45 Anesthesiologist:: Jamil Faria CRNA Complications:: None Pre-procedure Diagnosis:: Degenerative disc disease lumbar spine multilevels. Lumbar radiculopathy. Lumbar postlaminectomy syndrome Post-procedure Diagnosis:: Same. Indications for Procedure:: Patient is a very pleasant 76-year-old female that comes our clinic today for lumbar epidural steroid injection at L3-4 level. Patient describes low back pain as constant, dull, aching. Radicular symptoms into the left foot. She rates her pain 7/10. Procedure Details:: Procedure: Lumbar epidural steroid injection under fluoroscopy Informed consent was obtained and the risks and benefits of the procedure were explained to the patient. The patient was taken to the procedure room and noninvasive monitors placed, including noninvasive blood pressure cuff and pulse oximeter. The back was viewed using C-arm Fluoroscopy and prepped using Chloraprep as a cleansing solution and the L3-4 interspace was palpated. Skin and subcutaneous tissues were anesthetized using lidocaine 1.5% and a 25-gauge needle. After this, an 18-gauge Touhy epidural needle was placed into the L3-4 interspace and advanced using fluoroscopic guidance and loss of resistance to air until the epidural space was encountered. After confirmation of needle placement in the epidural space, with dye, a solution containing normal saline, 3 mL and Depo-Medrol 80 mg were incrementally injected into the lumbar epidural space. The patient tolerated the procedure well with no complications. The patient was observed in the Pain Clinic and then discharged home neurologically intact. Plan and Disposition:: Patient was discharged without incident.
== END 2022-06-07 12:02 | disposition home or self-care (01) ==
PROVIDERS: PCP Internal Medicine Adolescent Medicine; Visit Provider Nurse Anesthetist, Certified Registered
DX: M51.16 Intervertebral disc disorders with radiculopathy, lumbar region (principal); M96.1 Postlaminectomy syndrome, not elsewhere classified
CPT/HCPCS: 62323; J1040

== ENCOUNTER → 2022-06-29 11:00 | Outpatient (POV) | payer MEDICARE, SELFPAY ==
--- NOTE | 2022-06-29 11:23 | EXP.PAIN.SOA ---
[facility] Pain Management SOAP Note Subjective:: Patient is a pleasant 76-year-old female who presents today for follow-up of lumbar epidural steroid injection at L3-L4 on 06/07/2022. We are currently treating the patient for degenerative disc disease of lumbar spine with lumbar radiculopathy symptoms, chronic sacroiliitis, spinal stenosis. Today she states she had at least 75% improvement following this injection and that it lasted up until the last 3 days. She does rate her pain today a 6 out of 10. Patient denies any new trauma or injury. Patient denies any change location or type of pain she experiences. She does describe this as a aching, throbbing sensation that is worse with increased activity. Patient cannot tolerate prolonged sitting, standing, walking due to the pain. Patient would frequently have to take multiple breaks while doing activities such as cooking and cleaning to get relief. Patient states following this injection she was able to go shopping with decreased pain and did not have to take as many breaks. Patient is currently prescribed diclofenac 75 mg twice a day and Flexeril 10 mg twice a day from her primary care doctor. Patient denies any side effects from this medication. She is also had compounding cream for additional relief. Her Juan Jose is [phone]. Its been reviewed and appropriate. Review of Systems: General: No recent weight changes, no fever, no sleep disturbances Respiratory: No cough, no shortness of air, no recurring pulmonary infections Cardiovascular/peripheral vascular: No chest pain, no palpitations, no edema, no shortness of breath Gastrointestinal: No new onset incontinence, normal bowel movements reported Genitourinary: No new onset incontinence Musculoskeletal: Low back pain Psychiatric: [Normal mood/affect] Neurological: [Denies weakness in extremities], [denies balance issues] Objective:: Physical Exam: General: Alert and oriented x3, no acute distress, pleasant and cooperative Lungs: Respirations even and unlabored, symmetrical chest expansion Eyes: PERRL Musculoskeletal: Flexion and extension of lumbar [spine] somewhat guarded secondary to pain, [antalgic gait noted] Neurological: Speech clear, no gross sensory deficit Assessment:: Degenerative disc disease of lumbar spine with lumbar radiculopathy symptoms, chronic sacroiliitis, lumbar spinal stenosis Plan:: Patient is back to her baseline and is experiencing significant pain in her low back with limited range of motion of her lumbar spine. I have discussed with the patient that she may benefit from a repeat lumbar epidural steroid injection. Patient did have 75% relief with her last epidural. Risk and benefits were discussed with the patient and she would like to proceed forward with this plan of care. Patient is not on any blood thinners. We will schedule her for a lumbar epidural steroid injection of L3-L4. Patient has been instructed to contact the clinic with any concerns before the next appointment. Dr. Espinosa has reviewed this note and agrees with this plan of care. This note was dictated using voice recognition software and make contain errors or omissions. [facility] Disclaimer: The information contained in this section may have been updated after the patient was seen, as this information can be updated by other users. Medical History Arthritis Endometriosis Hyperlipemia Hypothyroidism Surgical History Hx of cholecystectomy Previous back surgery Family History Other No significant family history Social History Smoking Status: Former smoker pack-years: 60 second hand exposure: No alcohol intake: never substance use type: denies use current occupational status: retired Travel in the last 8
[2022-06-29 11:49] VITALS: BP 128/68; PULSE 91; RESP 18; O2SAT 97; BMI 27.8
== END ==
PROVIDERS: PCP Internal Medicine Adolescent Medicine; Visit Provider Nurse Practitioner Family
DX: M51.16 Intervertebral disc disorders with radiculopathy, lumbar region (principal); M48.061 Spinal stenosis, lumbar region without neurogenic claudication; M46.1 Sacroiliitis, not elsewhere classified
CPT/HCPCS: 99212; G0463

== ENCOUNTER 2022-07-05 13:59 | Day surgery (SDC) | payer MEDICARE, SELFPAY ==
[2022-07-05 14:18] VITALS: BP 109/58; PULSE 86; RESP 18; TEMP 36.7; O2SAT 97; BMI 27.8
[2022-07-05 14:19] VITALS: BP 112/54; PULSE 88; RESP 18; O2SAT 98
--- NOTE | 2022-07-05 14:24 | EXP.PAIN.PRO ---
Procedure Date: 07/05/22 Time: 14:20 Anesthesiologist:: Jamil Faria CRNA Complications:: None Pre-procedure Diagnosis:: Degenerative disc disease lumbar spine multilevels. Lumbar radiculopathy. Post-procedure Diagnosis:: Same Indications for Procedure:: Patient is a pleasant 76-year-old female that comes our clinic today for a second lumbar epidural steroid injection at the L3-4 level. Patient reports 75+ percent in terms of her low back pain as well as bilateral hip and leg radicular symptoms with her first. She is very pleased with the results. She rates her pain today / Procedure Details:: Procedure: Lumbar epidural steroid injection under fluoroscopy Informed consent was obtained and the risks and benefits of the procedure were explained to the patient. The patient was taken to the procedure room and noninvasive monitors placed, including noninvasive blood pressure cuff and pulse oximeter. The back was viewed using C-arm Fluoroscopy and prepped using Chloraprep as a cleansing solution and the L3-4 interspace was palpated. Skin and subcutaneous tissues were anesthetized using lidocaine 1.5% and a 25-gauge needle. After this, an 18-gauge Touhy epidural needle was placed into the L3-4 interspace and advanced using fluoroscopic guidance and loss of resistance to air until the epidural space was encountered. After confirmation of needle placement in the epidural space, with dye, a solution containing normal saline, 3 mL and Depo-Medrol 80 mg were incrementally injected into the lumbar epidural space. The patient tolerated the procedure well with no complications. The patient was observed in the Pain Clinic and then discharged home neurologically intact. Plan and Disposition:: Patient was discharged without incident.
[2022-07-05 14:25] VITALS: BP 104/43; PULSE 80; RESP 18; O2SAT 97
== END 2022-07-05 14:25 | disposition home or self-care (01) ==
PROVIDERS: PCP Internal Medicine Adolescent Medicine; Visit Provider Nurse Anesthetist, Certified Registered
DX: M51.16 Intervertebral disc disorders with radiculopathy, lumbar region (principal)
CPT/HCPCS: 62323; J1040

== ENCOUNTER → 2022-07-20 12:52 | Outpatient (POV) | payer MEDICARE, SELFPAY ==
--- NOTE | 2022-07-20 12:56 | EXP.PAIN.SOA ---
[facility] Pain Management SOAP Note Subjective:: Patient is a pleasant 76-year-old female who presents today for follow-up of LESI L3-L4 on 07/05/2022. We are currently treating the patient for degenerative disc disease of lumbar spine with lumbar radiculopathy symptoms, chronic sacroiliitis, spinal stenosis. Today she states that she has had at least 50% improvement and feels like it is still continuing to provide some relief. She states most days are more manageable than what she was prior however there still continue to be some bad days. She states yesterday she did have worsening pain and pretty much stayed in bed all day. Today she states she is much better and doing well. She does describe her low back pain as an aching, throbbing sensation that is worse with increased activity. Patient does state that her pain frequently interferes with her ability to perform activities of daily living such as cooking and cleaning. She does state that she is scheduled to go to [place] at the end of July to see her grandson's high school graduation. She is interested in repeating her injection before she goes. Patient is currently prescribed diclofenac 75 mg twice a day and Flexeril 10 mg twice a day from her primary care doctor. Patient denies any side effects from this medication. She is also prescribed compounding cream that she states does provide good relief. Her Juan Jose is [phone]. Its been reviewed and appropriate. Review of Systems: General: No recent weight changes, no fever, no sleep disturbances Respiratory: No cough, no shortness of air, no recurring pulmonary infections Cardiovascular/peripheral vascular: No chest pain, no palpitations, no edema, no shortness of breath Gastrointestinal: No new onset incontinence, normal bowel movements reported Genitourinary: No new onset incontinence Musculoskeletal: Low back pain Psychiatric: [Normal mood/affect] Neurological: [Denies weakness in extremities], [denies balance issues] Objective:: Physical Exam: General: Alert and oriented x3, no acute distress, pleasant and cooperative Lungs: Respirations even and unlabored, symmetrical chest expansion Eyes: PERRL Musculoskeletal: Flexion and extension of lumbar [spine] somewhat guarded secondary to pain, [antalgic gait noted] Neurological: Speech clear, no gross sensory deficit Assessment:: degenerative disc disease of lumbar spine with lumbar radiculopathy symptoms, chronic sacroiliitis, spinal stenosis Plan:: Patient has had at least 50% improvement following her injection however she is starting to experience more pain on a day-to-day basis. Patient did have limited range of motion of her lumbar spine during today's visit. I have discussed with the patient that she may benefit from a repeat lumbar epidural steroid injection. Risk and benefits were discussed with the patient and she would like to proceed forward with this plan of care. Patient is not on any blood thinners. We will schedule her for a LESI L3-L4. Patient has been instructed to contact the clinic with any concerns before the next appointment. Dr. Espinosa has reviewed this note and agrees with this plan of care. This note was dictated using voice recognition software and make contain errors or omissions. [facility] Disclaimer: The information contained in this section may have been updated after the patient was seen, as this information can be updated by other users. Medical History Arthritis Endometriosis Hyperlipemia Hypothyroidism Surgical History Hx of cholecystectomy Previous back surgery Family History Other No significant family history Social History Smoking Status: Former smoker pack-years: 60 second hand exposure: No alcohol intake: never
[2022-07-20 12:58] VITALS: BP 123/60; PULSE 95; RESP 18; O2SAT 97; BMI 27.8
== END ==
PROVIDERS: PCP Internal Medicine Adolescent Medicine; Visit Provider Nurse Practitioner Family
DX: M51.16 Intervertebral disc disorders with radiculopathy, lumbar region (principal); M46.1 Sacroiliitis, not elsewhere classified; M48.00 Spinal stenosis, site unspecified
CPT/HCPCS: 99212; G0463

== ENCOUNTER 2022-08-16 08:57 | Day surgery (SDC) | payer MEDICARE, SELFPAY ==
[2022-08-16 09:10] VITALS: BP 104/68; PULSE 88; RESP 18; TEMP 36.6; O2SAT 95; BMI 27.8
[2022-08-16 09:32] VITALS: BP 118/53; PULSE 82; RESP 18; O2SAT 98
[2022-08-16 09:40] VITALS: BP 123/54; PULSE 68; RESP 18; O2SAT 95
--- NOTE | 2022-08-16 09:42 | EXP.PAIN.PRO ---
Procedure Date: 08/16/22 Time: 09:30 Anesthesiologist:: Jamil Faria CRNA Complications:: None Pre-procedure Diagnosis:: Degenerative disc lumbar spine multilevels. Lumbar radiculopathy. Lumbar postlaminectomy syndrome Lumbar spondylosis Post-procedure Diagnosis:: Same. Indications for Procedure:: Patient is a very pleasant 77-year-old female comes our clinic today for lumbar epidural steroid injection to L3-4 level. Patient has had 2 previous lumbar epidural steroid injection at the same level. She reports 60 to 80% overall improvement in her low back pain as well as bilateral hip and leg radicular symptoms. Procedure Details:: Procedure: Lumbar epidural steroid injection under fluoroscopy Informed consent was obtained and the risks and benefits of the procedure were explained to the patient. The patient was taken to the procedure room and noninvasive monitors placed, including noninvasive blood pressure cuff and pulse oximeter. The back was viewed using C-arm Fluoroscopy and prepped using Chloraprep as a cleansing solution and the L3-4 interspace was palpated. Skin and subcutaneous tissues were anesthetized using lidocaine 1.5% and a 25-gauge needle. After this, an 18-gauge Touhy epidural needle was placed into the L3-4 interspace and advanced using fluoroscopic guidance and loss of resistance to air until the epidural space was encountered. After confirmation of needle placement in the epidural space, with dye, a solution containing normal saline, 3 mL and Depo-Medrol 80 mg were incrementally injected into the lumbar epidural space. The patient tolerated the procedure well with no complications. The patient was observed in the Pain Clinic and then discharged home neurologically intact. Plan and Disposition:: Patient was discharged without incident.
== END 2022-08-16 09:40 | disposition home or self-care (01) ==
PROVIDERS: PCP Internal Medicine Adolescent Medicine; Visit Provider Nurse Anesthetist, Certified Registered
DX: M51.16 Intervertebral disc disorders with radiculopathy, lumbar region (principal); M96.1 Postlaminectomy syndrome, not elsewhere classified; M47.26 Other spondylosis with radiculopathy, lumbar region
CPT/HCPCS: 62323; J1040

== ENCOUNTER → 2022-09-12 09:23 | Outpatient (POV) | payer MEDICARE, SELFPAY ==
--- NOTE | 2022-09-12 09:36 | EXP.PAIN.SOA ---
[facility] Pain Management SOAP Note Subjective:: Patient is a pleasant 76-year-old female who presents today for follow-up of LESI L3-L4 on 08/16/2022.? We are currently treating the patient for degenerative disc disease of lumbar spine with lumbar radiculopathy symptoms, chronic sacroiliitis, spinal stenosis.? Today she states she had at least 85% improvement lasting approximately 2 weeks. Today she rates her pain a 5 out of 10. She does state that she feels like she is experiencing more low back pain as the injection is starting to wear off. She does state during the time that the injection was working well she was able to increase her activity and actually went on vacation and was able to do more walking and activities of daily living such as cooking and cleaning with decreased pain symptoms. She does describe her low back pain as an aching, throbbing sensation that is worse with increased activity.? She does states she feels more limited now that the pain is coming back. She is currently prescribed diclofenac 75 mg twice a day and Flexeril 10 mg twice a day from her primary care doctor.? Patient denies any side effects from this medication.? She is also prescribed compounding cream that she states does provide good relief.? Her Juan Jose is [phone].? Its been reviewed and appropriate. Review of Systems: General: No recent weight changes, no fever, no sleep disturbances Respiratory: No cough, no shortness of air, no recurring pulmonary infections Cardiovascular/peripheral vascular: No chest pain, no palpitations,? no edema, no shortness of breath Gastrointestinal: No new onset incontinence, normal bowel movements reported Genitourinary: No new onset incontinence Musculoskeletal: Low back pain Psychiatric: [Normal mood/affect] Neurological: [Denies weakness in extremities], [denies balance issues] Objective:: Physical Exam: General: Alert and oriented x3, no acute distress, pleasant and cooperative Lungs: Respirations even and unlabored, symmetrical chest expansion Eyes: PERRL Musculoskeletal: Flexion and extension of lumbar [spine] somewhat guarded secondary to pain, [antalgic gait noted] Neurological: Speech clear, no gross sensory deficit Assessment:: Degenerative disc disease of lumbar spine with lumbar radiculopathy symptoms, sacroiliitis, spinal stenosis Plan:: Patient is starting to experience worsening pain in her low back and legs with limited range of motion. I have discussed with the patient that she may benefit from repeat epidural injection. Risk and benefits were discussed with the patient and she would like to proceed forward with this plan of care. Patient did get 85% improvement with her last injection lasting 2 weeks. We will schedule her for an LESI L3-L4. Patient has been instructed to contact the clinic with any concerns before the next appointment. Dr. Espinosa has reviewed this note and agrees with this plan of care. This note was dictated using voice recognition software and make contain errors or omissions. [facility] Disclaimer: The information contained in this section may have been updated after the patient was seen, as this information can be updated by other users. Medical History Arthritis Endometriosis Hyperlipemia Hypothyroidism Surgical History Hx of cholecystectomy Previous back surgery Family History Other No significant family history Social History Smoking Status: Former smoker pack-years: 60 second hand exposure: No alcohol intake: never substance use type: denies use current occupational status: retired Travel in the last 8 weeks: None household members: spouse housing: house current occupational exposures/hazards: No caffeine: Yes
[2022-09-12 11:22] VITALS: BP 102/45; PULSE 84; RESP 18; BMI 27.8
== END ==
PROVIDERS: PCP Internal Medicine Adolescent Medicine; Visit Provider Nurse Practitioner Family
DX: M51.16 Intervertebral disc disorders with radiculopathy, lumbar region (principal); M46.1 Sacroiliitis, not elsewhere classified; M48.00 Spinal stenosis, site unspecified
CPT/HCPCS: 99212; G0463

== ENCOUNTER 2022-10-04 13:39 | Day surgery (SDC) | payer MEDICARE, SELFPAY ==
[2022-10-04 13:54] VITALS: BP 102/74; PULSE 89; RESP 18; TEMP 36.7; O2SAT 96; BMI 27.8
[2022-10-04 14:04] VITALS: BP 112/55; PULSE 94; RESP 18; O2SAT 95
[2022-10-04 14:05] VITALS: BP 112/55; PULSE 92; RESP 18; O2SAT 95
--- NOTE | 2022-10-04 14:07 | EXP.PAIN.PRO ---
Procedure Date: 10/04/22 Time: 13:50 Anesthesiologist:: Jamil Faria CRNA Complications:: None Pre-procedure Diagnosis:: Degenerative disc lumbar spine multilevels. Lumbar radiculopathy. Lumbar postlaminectomy syndrome. Lumbar spondylosis. Post-procedure Diagnosis:: Same. Indications for Procedure:: Patient is a pleasant 77-year-old female that comes our clinic today for repeat L3-4 lumbar epidural steroid injection. Patient received same injection on 08/16/2022 with significant improvement terms of her overall low back pain as well as bilateral hip and leg radicular symptoms. Patient rates her pain today 8/10. Procedure Details:: Procedure: Lumbar epidural steroid injection under fluoroscopy Informed consent was obtained and the risks and benefits of the procedure were explained to the patient. The patient was taken to the procedure room and noninvasive monitors placed, including noninvasive blood pressure cuff and pulse oximeter. The back was viewed using C-arm Fluoroscopy and prepped using Chloraprep as a cleansing solution and the L3-4 interspace was palpated. Skin and subcutaneous tissues were anesthetized using lidocaine 1.5% and a 25-gauge needle. After this, an 18-gauge Touhy epidural needle was placed into the L3-4 interspace and advanced using fluoroscopic guidance and loss of resistance to air until the epidural space was encountered. After confirmation of needle placement in the epidural space, with dye, a solution containing normal saline, 3 mL and Depo-Medrol 80 mg were incrementally injected into the lumbar epidural space. The patient tolerated the procedure well with no complications. The patient was observed in the Pain Clinic and then discharged home neurologically intact. Plan and Disposition:: Patient was discharged without incident.
[2022-10-04 14:12] VITALS: BP 104/57; PULSE 75; RESP 18; O2SAT 96
== END 2022-10-04 14:12 | disposition home or self-care (01) ==
PROVIDERS: PCP Internal Medicine Adolescent Medicine; Visit Provider Nurse Anesthetist, Certified Registered
DX: M51.16 Intervertebral disc disorders with radiculopathy, lumbar region (principal); M96.1 Postlaminectomy syndrome, not elsewhere classified; M47.26 Other spondylosis with radiculopathy, lumbar region
CPT/HCPCS: 62323; J1040

== ENCOUNTER → 2022-10-19 14:19 | Outpatient (POV) | payer MEDICARE, SELFPAY ==
[2022-10-19 14:26] VITALS: BP 127/48; PULSE 85; RESP 20; BMI 27.8
--- NOTE | 2022-10-19 14:44 | EXP.PAIN.SOA ---
[facility] Pain Management SOAP Note Subjective:: Patient is a pleasant 77-year-old female who presents today for follow-up of lumbar epidural steroid injection L3-L4 on 10/04/2022. We are currently treating the patient for degenerative disc disease of the lumbar spine with lumbar radiculopathy symptoms, chronic sacroiliitis, lumbar spinal stenosis. Today she rates her pain a 7 out of 10. Patient states that the injection did provide at least 75% improvement lasting almost 2 weeks. She does state the last 2 days she feels like she is going back to her baseline. She denies any new trauma or injury. She does state her pain is an aching, throbbing sensation that is worse with increased activity. She states while the injection was working she was able to move around easier with decreased pain symptoms. She does state that she actually did recently move and was able to do a lot of activity related to this. Patient is interested in additional injective therapy. She does state the pain interferes with her ability to perform activities of daily living such as cooking and cleaning. Patient is currently managed with diclofenac 75 mg twice a day and Flexeril 10 mg twice a day from her primary care doctor. She denies any side effects from this medication. She has tried compounding cream and states it does help some additionally. Her Juan Jose is [phone]. Its been reviewed and appropriate. Review of Systems: General: No recent weight changes, no fever, no sleep disturbances Respiratory: No cough, no shortness of air, no recurring pulmonary infections Cardiovascular/peripheral vascular: No chest pain, no palpitations, no edema, no shortness of breath Gastrointestinal: No new onset incontinence, normal bowel movements reported Genitourinary: No new onset incontinence Musculoskeletal: Low back pain, leg pain Psychiatric: [Normal mood/affect] Neurological: [Denies weakness in extremities], [denies balance issues] Objective:: Physical Exam: General: Alert and oriented x3, no acute distress, pleasant and cooperative Lungs: Respirations even and unlabored, symmetrical chest expansion Eyes: PERRL Musculoskeletal: Flexion and extension of lumbar [spine] somewhat guarded secondary to pain, [antalgic gait noted] Neurological: Speech clear, no gross sensory deficit Assessment:: Degenerative disc disease of lumbar spine with lumbar radiculopathy symptoms, chronic sacroiliitis, lumbar spinal stenosis Plan:: Patient did have significant relief following her lumbar epidural steroid injection however she is back to her baseline today. She is experiencing worsening pain in her low back and legs with limited range of motion. I have discussed with the patient that she may benefit from repeat lumbar epidural. Risk and benefits were discussed with the patient and she would like to proceed forward with this plan of care. Patient is not on any blood thinners. We will schedule the patient for an LESI L3-L4. Patient has been instructed to contact the clinic with any concerns before the next appointment. Dr. Espinosa has reviewed this note and agrees with this plan of care. This note was dictated using voice recognition software and make contain errors or omissions. [facility] Disclaimer: The information contained in this section may have been updated after the patient was seen, as this information can be updated by other users. Medical History Arthritis Endometriosis Hyperlipemia Hypothyroidism Surgical History Hx of cholecystectomy Previous back surgery Family History Other No significant family history Social History Smoking Status: Former smoker pack-years: 50 second hand exposure: No alcohol intake: never substance use type: denies use
== END ==
PROVIDERS: PCP Internal Medicine Adolescent Medicine; Visit Provider Nurse Practitioner Family
DX: M51.16 Intervertebral disc disorders with radiculopathy, lumbar region (principal); M48.061 Spinal stenosis, lumbar region without neurogenic claudication; M46.1 Sacroiliitis, not elsewhere classified; G89.29 Other chronic pain
CPT/HCPCS: 99212; G0463

== ENCOUNTER → 2022-11-16 10:25 | Outpatient (POV) | payer MEDICARE, SELFPAY ==
--- NOTE | 2022-11-16 10:53 | EXP.PAIN.SOA ---
[facility] Pain Management SOAP Note Subjective:: Patient is a pleasant 77-year-old female who presents today for follow-up of lumbar epidural denial. We are currently treating the patient for degenerative disc disease of lumbar spine with lumbar radiculopathy symptoms, chronic sacroiliitis, lumbar spinal stenosis. Today she rates her pain a 7 out of 10. Patient denies any new trauma or injury. She does state her pain today is all in her low back with radiating symptoms down her left leg. Patient does describe this as an aching, throbbing sensation with numbness and tingling into her lower leg. Patient does state the pain interferes with her ability perform activities of daily living such as cooking and cleaning. Patient is currently managed with diclofenac 75 mg twice a day and Flexeril 10 mg twice a day from her primary care doctor. She does also use compounding cream on a regular basis from our office. Her Juan Jose is [phone]. Its been reviewed and appropriate. Review of Systems: General: No recent weight changes, no fever, no sleep disturbances Respiratory: No cough, no shortness of air, no recurring pulmonary infections Cardiovascular/peripheral vascular: No chest pain, no palpitations, no edema, no shortness of breath Gastrointestinal: No new onset incontinence, normal bowel movements reported Genitourinary: No new onset incontinence Musculoskeletal: Low back pain, left leg pain Psychiatric: [Normal mood/affect] Neurological: [Denies weakness in extremities], [denies balance issues] Objective:: Physical Exam: General: Alert and oriented x3, no acute distress, pleasant and cooperative Lungs: Respirations even and unlabored, symmetrical chest expansion Eyes: PERRL Musculoskeletal: Flexion and extension of lumbar [spine] somewhat guarded secondary to pain, [antalgic gait noted] positive left leg raise with diminished reflexes and diminished sensation to light touch along the left leg Neurological: Speech clear, no gross sensory deficit L3-4:Moderate annular disc bulge and severe facet arthropathy. Severe central canal stenosis. Severe right and moderate left neural foraminal narrowing. L4-5: Mild annular disc bulge and severe facet arthropathy. Severe central canal stenosis, largely related to spondylolisthesis. Severe bilateral neural foraminal narrowing. Assessment:: Degenerative disc disease of lumbar spine with lumbar radiculopathy symptoms, chronic sacroiliitis, lumbar spinal stenosis Plan:: Patient is experiencing worsening pain in her low back with radiating symptoms down her left leg. Patient did have limited range of motion of her lumbar spine during today's visit as well as a positive left leg raise and diminished reflexes with decreased sensation to light touch along her left leg during today's exam. I have discussed with the patient that she may benefit from a left transforaminal epidural steroid injection. Risk and benefits were explained to the patient and she would like to proceed forward with this plan of care. Patient does have significant findings consistent with possible nerve impingement, patient's previous imaging did show severe narrowing at both of these levels. Patient has tried and failed conservative therapy such as oral medications, heat and ice, topicals, physical therapy, at home stretching exercise for longer than 12 weeks. Patient is not on any blood thinners. We will schedule the patient for a left transforaminal epidural steroid injection L3-L4 and L4-L5. Patient has been instructed to contact the clinic with any concerns before the next appointment. Dr. Espinosa has reviewed this note and agrees with this plan of care. This note was dictated using voice recognition software and make contain errors or omissions. [facility] Disclaimer: The information contained in this section may have been updated after the patient was seen, as this information can be updated by other users. Medical History (Reviewed 10/04/22 @
[2022-11-16 11:58] VITALS: BP 114/64; PULSE 88; RESP 18; O2SAT 96; BMI 27.8
== END ==
PROVIDERS: PCP Internal Medicine Adolescent Medicine; Visit Provider Nurse Practitioner Family
DX: M51.16 Intervertebral disc disorders with radiculopathy, lumbar region (principal); M46.1 Sacroiliitis, not elsewhere classified; M48.061 Spinal stenosis, lumbar region without neurogenic claudication
CPT/HCPCS: 99212; G0463

== ENCOUNTER 2022-11-29 08:44 | Day surgery (SDC) | payer MEDICARE, SELFPAY ==
[2022-11-29 08:53] VITALS: BP 119/62; PULSE 82; RESP 18; O2SAT 95; BMI 27.8
[2022-11-29 09:08] VITALS: BP 124/51; PULSE 87; RESP 18; O2SAT 96
[2022-11-29 09:10] VITALS: BP 124/51; PULSE 87; RESP 18; O2SAT 96
[2022-11-29 09:26] VITALS: BP 129/91; PULSE 84; RESP 20
--- NOTE | 2022-11-29 09:32 | EXP.PAIN.PRO ---
Procedure Date: 11/29/22 Time: 09:00 Anesthesiologist:: Jamil Faria CRNA Complications:: None Pre-procedure Diagnosis:: Degenerative disc lumbar spine multilevels. Lumbar radiculopathy. Lumbar spondylolisthesis 4/5. Lumbar spondylosis. Multilevel lumbar facet arthropathy. Lumbar postlaminectomy syndrome. Post-procedure Diagnosis:: Same. Indications for Procedure:: Patient is a very pleasant 77-year-old female that comes our clinic today for left L3-4, L4-5 transforaminal epidural steroid injection. Patient has low back pain she describes as constant, dull, aching. Also, patient complains of left posterior hip and leg radicular symptoms to the foot. Patient is status post lumbar laminectomy discectomy in 2010. She continues to suffer with low back issues including spinal listhesis L4 on 5. She rates her pain 8/10. Procedure Details:: Details of the procedure were explained to the patient. The patient was taken the procedure room placed in the prone position. The area of the lumbar spine was cleansed using chlorhexidine as a cleansing solution. At this time using fluoroscopy guidance markers were placed on the left lateral border of the L3 and L4 vertebral body. The skin and subcutaneous tissue was anesthetized using 1% lidocaine and 25-gauge needle. At this time using a 22-gauge 3-1/2 inch spinal needle the left upper one third of the L3-4 foramen was accessed. The same was done at the left L4-5 foramen. Needle positions were confirmed and a lateral view using fluoroscopy and contrast dye. At this time 1 cc of 1% lidocaine +20 mg of Depo-Medrol was injected at each level after negative aspiration. [place] were removed. Band-Aid applied. Patient tolerated the procedure without difficulty. There are no complications. Plan and Disposition:: Patient was discharged without incident. Discussed in detail with the patient regarding surgical consultation due to increased low back pain as well as bilateral hip and leg radicular symptoms. Patient wishes to proceed. I think this is a reasonable option for the patient. I will refer her to Dr. Portillo Garcia.
== END 2022-11-29 09:27 | disposition home or self-care (01) ==
LOC: SC.PAINP 08:45
PROVIDERS: PCP Internal Medicine Adolescent Medicine; Visit Provider Nurse Anesthetist, Certified Registered
DX: M51.16 Intervertebral disc disorders with radiculopathy, lumbar region (principal); M47.26 Other spondylosis with radiculopathy, lumbar region; M96.1 Postlaminectomy syndrome, not elsewhere classified
CPT/HCPCS: 64483; 64484; J1030

== ENCOUNTER → 2022-12-14 10:54 | Outpatient (POV) | payer MEDICARE, SELFPAY ==
[2022-12-14 12:02] VITALS: BP 118/37; PULSE 74; RESP 18; O2SAT 95; BMI 28.3
--- NOTE | 2022-12-14 12:03 | EXP.PAIN.SOA ---
[facility] Pain Management SOAP Note Subjective:: Patient is a pleasant 77-year-old female who presents today for follow-up of left transforaminal epidural steroid injection L3-L4 and L4-L5 on 11-29-22. We are currently treating the patient for degenerative disc disease of lumbar spine with lumbar radiculopathy symptoms, chronic sacroiliitis, lumbar spinal stenosis. Today she rates her pain a 5 out of 10. Patient states that she continues to have low back pain that radiates into her lower extremity. Patient states that she did not have any additional relief following this last injection. Patient does generally get lumbar epidurals that work well however her insurance denied her last lumbar epidurals. Patient states her pain is an aching, throbbing sensation that is worse with increased activity. It does interfere with her ability perform activities of daily living such as cooking and cleaning. Patient states the numbness and tingling into her leg is very bothersome and interferes with her daily life. Patient is currently managed with diclofenac 75 mg twice a day and Flexeril 10 mg twice a day from her PCP. She does state that she has seen Margarito Roberts at [facility] and he is recommending surgical intervention. He has told her that she cannot have any steroid injections after December 25. She would like to try for her last lumbar epidural prior to her upcoming surgery as soon as possible. She is prescribed compounded cream. Her Juan Jose is [phone]. Its been reviewed and appropriate. Review of Systems: General: No recent weight changes, no fever, no sleep disturbances Respiratory: No cough, no shortness of air, no recurring pulmonary infections Cardiovascular/peripheral vascular: No chest pain, no palpitations, no edema, no shortness of breath Gastrointestinal: No new onset incontinence, normal bowel movements reported Genitourinary: No new onset incontinence Musculoskeletal: Low back pain, leg pain Psychiatric: [Normal mood/affect] Neurological: [Denies weakness in extremities], [denies balance issues] Objective:: Physical Exam: General: Alert and oriented x3, no acute distress, pleasant and cooperative Lungs: Respirations even and unlabored, symmetrical chest expansion Eyes: PERRL Musculoskeletal: Flexion and extension of lumbar [spine] somewhat guarded secondary to pain, [antalgic gait noted] Neurological: Speech clear, no gross sensory deficit Assessment:: Degenerative disc disease of lumbar spine with lumbar radiculopathy symptoms, chronic sacroiliitis, lumbar spinal stenosis Plan:: Patient continues to experience significant pain in her low back with radiating symptoms into her legs. Patient did have limited range of motion of her lumbar spine during today's visit. I have discussed with the patient that since she has gotten such significant improvement with the lumbar epidurals that we will resubmit to insurance for a lumbar epidural steroid injection L3-L4. Risk and benefits of this injection were explained to the patient and she would like to proceed forward with this plan of care. Patient's last lumbar epidural provided 85% improvement. Patient will be scheduled for an LESI L3-L4. Patient has been instructed to contact the clinic with any concerns before the next appointment. Dr. Espinosa has reviewed this note and agrees with this plan of care. This note was dictated using voice recognition software and make contain errors or omissions. [facility] Disclaimer: The information contained in this section may have been updated after the patient was seen, as this information can be updated by other users. Medical History Arthritis Endometriosis Hyperlipemia Hypothyroidism Surgical History Hx of cholecystectomy Previous back surgery Family History Other No sign
== END ==
PROVIDERS: PCP Internal Medicine Adolescent Medicine; Visit Provider Nurse Practitioner Family
DX: M51.16 Intervertebral disc disorders with radiculopathy, lumbar region (principal); M46.1 Sacroiliitis, not elsewhere classified; G89.29 Other chronic pain; M48.061 Spinal stenosis, lumbar region without neurogenic claudication
CPT/HCPCS: 99212; G0463

== ENCOUNTER → 2023-03-14 23:00 | Outpatient (CLI) | payer MEDICARE, SELFPAY ==
[2023-03-14 18:26] LABS: Coronavirus 19, PCR Not Detected (NotDetected); Influenza A, PCR Not Detected (NotDetected); Influenza B, PCR Not Detected (NotDetected)
== END ==
PROVIDERS: PCP Student in an Organized Health Care Education/Training Program; Visit Provider Student in an Organized Health Care Education/Training Program
DX: R05.9 Cough, unspecified (principal); R50.9 Fever, unspecified; R09.81 Nasal congestion; J02.9 Acute pharyngitis, unspecified; R09.89 Other specified symptoms and signs involving the circulatory and respiratory systems
CPT/HCPCS: 87636

== ENCOUNTER 2023-06-26 08:13 | Outpatient (CLI) | payer MEDICARE, SELFPAY ==
--- NOTE | 2023-06-26 08:26 | CT_ITS ---
FINAL REPORT CLINICAL HISTORY: DYSURIA; RECURRENT UTI 75cc of isovue 370 saline flush COMPARISON: None FINDINGS: CT OF THE ABDOMEN AND PELVIS WITH CONTRAST Axial CT images of the abdomen and pelvis were obtained after the administration of oral and iv contrast. Coronal reformatted images were also obtained and reviewed.This study was performed with techniques to keep radiation doses as low as reasonably achievable (ALARA). Individualized dose reduction techniques using automated exposure control or adjustment of mA and/or kV according to the patient's size were employed. Abdomen: The lung bases are clear. The heart is normal in size. The liver has an unremarkable appearance, without evidence of mass or biliary ductal dilatation. Postcholecystectomy. The spleen is unremarkable. No adrenal mass is present. The pancreas has an unremarkable appearance. There is mild right renal scarring. The aorta is normal in caliber. There is no free fluid or adenopathy. No mass or abnormal fluid collection is seen. Pelvis: The appendix normal. There is diffuse bladder wall thickening, right greater than left. Inflammatory changes favored but neoplasm is not excluded. No inflammatory process is seen. There is no evidence of mass or adenopathy. There is no evidence of bowel obstruction. There is sigmoid diverticulosis. Post hysterectomy. There is severe degenerative change in the lower lumbar spine. There is mild 9 mm of anterolisthesis of L4 on L5. There is degenerative change of the left SI joint. IMPRESSION: Diffuse bladder wall thickening favored to be inflammatory change but neoplasm not excluded. Recommend correlation with cystoscopy. Reviewed, Interpreted and Dictated by Wallace Jiang III, MD Transcribed by Purvi Brandt Authenticated and [facility]
[2023-06-26 08:42] LABS: Blood Urea Nitrogen 20 mg/dl (7-17); Estimated Glomerular Filt Rate 54 ml/min (>60); GFR (African American) 65 ML/MIN (>60)
[2023-06-26] MEDS: SODIUM CHLORIDE 0.9% 10ML SYR (RAD ONLY) 10 ML IV (09:31)
[2023-06-26] MEDS: IOPAMIDOL-370 (76%);100ML BOTTLE 75 ML IV (09:31)
== END 2023-06-26 23:59 ==
LOC: RAD 08:13
PROVIDERS: PCP Internal Medicine Adolescent Medicine; Visit Provider Internal Medicine Adolescent Medicine
DX: R30.0 Dysuria (principal); N39.0 Urinary tract infection, site not specified
CPT/HCPCS: 36415; 74177; 82565; 84520; Q9967

== ENCOUNTER 2023-07-31 15:43 | Outpatient (CLI) | payer MEDICARE, SELFPAY ==
[2023-07-31 15:33] LABS: Microscopic, Urine URINE MICROSCOPIC (MICROSCOPIC)
[2023-07-31 16:06] LABS: Appearance,Urine CLEAR (Clear); Bilirubin,Urine Negative (Negative); Blood, Urine 2+ (Negative); Color,Urine YELLOW (Yellow); Glucose,Urine (UA) Negative (Negative); Ketones,Urine Negative (Negative); Leukocyte Esterase,Urine 1+ (Negative); Nitrate,Urine Negative (Negative); Protein,Urine Negative (Negative); Urobilinogen,Urine 0.2 EU/dl (0.2)
[2023-07-31 16:34] LABS: Bacteria,Urine Trace /lpf; RBC,Urine 20-50 #/hpf (0-3); Squamous Epithelial Cell,Urine 50-100 #/hpf (0-5); WBC,Urine 20-50 #/hpf (0-3)
[2023-08-07 16:49] LABS: Atopobium vaginae Low - 0 Score (.); BVAB2 Low - 0 Score (.); Candida albicans NAA Negative (Negative); Candida glabrata Positive (Negative); Chlamydia Trachomatis NAA Negative (Negative); HSV 1 NAA Negative (Negative); HSV 2 NAA Negative (Negative); Megasphaera 1 Low - 0 Score (.); Neisseria gonorrhoeae NAA Negative (Negative); Trich vag NAA Negative (Negative)
[2023-08-12 10:02] LABS: Miscellaneous Test SCANNED IMAGE
== END 2023-07-31 23:59 | disposition home or self-care (01) ==
LOC: LAB.DROPOF 15:43
PROVIDERS: PCP Urology; Visit Provider Urology
DX: N39.0 Urinary tract infection, site not specified (principal); R31.9 Hematuria, unspecified; R82.998 Other abnormal findings in urine; Z79.899 Other long term (current) drug therapy
CPT/HCPCS: 81001; 87086; 87491; 87529; 87591; 87661; 87798; 87801

== ENCOUNTER 2023-09-15 07:13 | Day surgery (SDC) | payer MEDICARE, SELFPAY ==
[2023-09-13 12:02] VITALS: BMI 28.3
[2023-09-15 07:28] VITALS: BP 141/53; PULSE 94; RESP 18; TEMP 36.4; O2SAT 96; BMI 28.3
[2023-09-15] MEDS: LACTATED RINGERS 1000ML 1,000 ML 50 ML IV (08:13)
[2023-09-15] MEDS: LIDOCAINE 2% UROJET 10ML 10 ML (08:13)
--- NOTE | 2023-09-15 08:17 | HMH.PROCNOTE ---
[facility] [place] Procedure Note Date: 09/15/23 Time: 08:00 Procedure Note:: Preop diagnosis: Hematuria Postop diagnosis: Hematuria/urethritis/cystitis Cystoscopy: The patient was brought to the cystoscopy treatment room. She was prepped and draped in the usual outpatient cystoscopy fashion. Xylocaine was placed in the urethra by the staff. Patient underwent flexible cystoscopy. Patient has intravaginal meatus. She has atrophic vaginitis currently under treatment. The patient has moderate urethritis. The ureteral orifice ease are normal bilaterally with clear E flux of urine. The bladder is basically [place] pink in color throughout. She has a few spots of slight erythema but I see no jose elias bladder tumors or areas at this point warranting biopsy. Should her hematuria continue perhaps follow-up cystoscopy at a later date with biopsy could be entertained. In general I feel that these small areas are inflammatory in nature. Her bladder capacity is good at 300 cc. She tolerated the procedure well and there was no estimated blood loss.
[2023-09-15 08:20] VITALS: BP 130/63; PULSE 71; RESP 18; TEMP 36.1; O2SAT 96
[2023-09-15 08:31] VITALS: BP 130/63; PULSE 71; RESP 18; O2SAT 96
== END 2023-09-15 08:32 | disposition home or self-care (01) ==
PROVIDERS: PCP Internal Medicine Adolescent Medicine; Visit Provider Urology
PROC: 0TJB8ZZ Inspection of Bladder, Via Natural or Artificial Opening Endoscopic (ICD-10-PCS; CPT 52000; principal; 2023-09-15 08:15)
DX: N34.2 Other urethritis; N30.91 Cystitis, unspecified with hematuria; N95.2 Postmenopausal atrophic vaginitis
CPT/HCPCS: 52000; J7120

== ENCOUNTER 2024-04-23 08:00 | Day surgery (SDC) | payer MEDICARE, SELFPAY ==
[2024-04-19 11:43] VITALS: BMI 27.9
[2024-04-23 08:38] VITALS: BP 131/60; PULSE 75; RESP 16; TEMP 36.2; O2SAT 95
[2024-04-23] MEDS: TETRACAINE 0.5% OPTH SOL 15ML OP (08:47)
[2024-04-23] MEDS: TROPICAMIDE 1% OPTH SOLN 2ML OP (08:48)
[2024-04-23] MEDS: PHENYLEPHRINE 2.5% OPHTH SOLN 2ML OP (08:48)
[2024-04-23] MEDS: APRACLONIDINE 0.5% OPHTH SOLN 5ML OP (08:48)
--- NOTE | 2024-04-23 11:44 | P.PCN_ITS ---
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 The patient has noticed that the vision has decreased from the previous good level postop. The patient reports that he/she is having trouble reading and/or driving or that glare is giving them a problem. On exam, the patient was found to have visually significant posterior capsular opacification. The treatment options, risks and benefits were explained and the patient elected to have YAG laser capsulotomy in an attempt to improve the vision. Of note, the best corrected visual acuity is in the 20/30 or worse range by refraction or glare testing. The eye was dilated and 1 drop of 0.5% Iopidine applied. YAG laser energy was applied to the posterior capsular bag with good formation of an opening and no complications were noted. The patient will be seen back for follow up in 2 weeks. OD 12 pulses, 41mj. OS 13 pulses, 45mj
== END 2024-04-23 09:44 | disposition home or self-care (01) ==
LOC: OUTP 08:01
PROVIDERS: PCP Internal Medicine Adolescent Medicine; Visit Provider Ophthalmology
PROC: (CPT 66821; principal; 2024-04-23 08:00)
DX: H26.493 Other secondary cataract, bilateral (principal)
CPT/HCPCS: 66821

== ENCOUNTER 2024-08-22 13:36 | Outpatient (CLI) | payer MEDICARE, SELFPAY | END 2024-08-22 23:59 | disposition home or self-care (01) | LOC: LAB.DROPOF 13:37 | PROVIDERS: PCP Internal Medicine Adolescent Medicine; Visit Provider Physician Assistant | DX: N30.01 Acute cystitis with hematuria (principal) | CPT/HCPCS: 87086 ==

== ENCOUNTER 2024-10-03 08:40 | Outpatient (CLI) | payer MEDICARE, SELFPAY ==
--- OUTSIDE RECORDS SUMMARY | 2024-10-03 08:42 | XMS_ITS | Referral Summary ---
Author Organization [employer] ([place], [place], [place], [place]) Address [address] [place] [address] Care Team Providers Care Orthophoto Tech/[place] Name Role Phone Unavailable Primary Care Provider Unavailabl e Social History Tobacco Use Types Packs/Day Years Used Date Smoking Tobacco: Never Assessed Food Insecurity Answer Date Recorded Food run out past 12 months Not on file 03/27 Food did not last past 12 months Not on file 04/14/2023 Employment Answer Date Recorded Help finding and keeping a job Not on file 0 04/14/2023 Family and Community Support Answer Jadiel e Recorded Help with Day to Day Activities Not on file 04/14/2023 Feeling Lonely or Isolated Not on file 04/14 Educational Attainment Answer Date Patel rded Speak language other than Telugu at home Not on file 04/14/2023 Want help with school or training Not on file 04/14/2023 Substance Use Answer Date Recorded Used prescription meds for non-medical reasons N ot on file 04/14/2023 Used illegal drugs past 12 months Not on file 04/14/2023 Comments Unknown Sex and Gender Information Value Date Recorded Sex Assigned at Not on file Legal Sex Female 12:55 PM CDT Gender Identity Not on file Sexual Orientation Not on file Plan of Treatment Not on file
--- OUTSIDE RECORDS SUMMARY | 2024-10-03 08:42 | XMS_ITS | Clinical Summary ---
Author Organization [employer] ([place], [place], [place], [place]) Address [address] [place] [address] Care Team Providers Care Plate Cutter Name Role Phone Unavailable Primary Care Provider [...] Date Patel rded Speak language other than Ukrainian at home Not on file 04/14/2023 Want [...] Orientation Not on file Plan of Treatment Health Maintenance Due Date Last Done Comments DXA SCAN 1945 Depression Screening (12+) 1958 Tobacco Cessation Counseling and Screening (12+) 1958 Hepatitis C Screening 1964 Respiratory Syncytial Virus (RSV) Adult or (1 - 1-dose 75+ series) 2021 Shingles Vaccine (Zoster) (2 of 2) 12/12/20222022 COVID-19 VACCINE (2023-2 5 season) 2023 08/18/2021, 01/18/2021, 06/03/2020, Additional history exists Falls Risk Screening 03/27/2024 Influenza Vaccine (#1) 2024 2, 01/08/2020, 01/14/2019, Additional history exists DTAP/TDAP/TD VACCINES (2 - T d or Tdap) 10/13/2026 10/13/2016 Pneumococcal 50+ years Completed 10/17/2022
--- NOTE | 2024-10-03 09:00 | US_ITS ---
Ultrasound Sonograher: PROCEDURE: US TRANSVAGINAL CLINICAL INDICATION: RULE OUT MASS COMPARISON: CT CT ABDOMEN PELVIS W CON from 06/26/2023 FINDINGS: Transvaginal sonographic images of the pelvis were obtained. UTERUS: The uterus is surgically absent. The vaginal vault is intact. LEFT OVARY: Surgically absent RIGHT OVARY: Surgically absent Both ovaries are surgically absent. There is no fluid in the cul-de-sac. IMPRESSION: 1. The uterus is surgically absent. The vaginal vault is intact. 2. The ovaries are not visualized and are likely surgically absent. No adnexal masses seen. 3. No fluid in the cul-de-sac. Dictated by: Isreal Sanders MD 10/03/2024 10:47 Isreal Sanders MD in [place] 10/03/2024 10:47
--- NOTE | 2024-10-03 09:21 | CA_ITS ---
FINAL REPORT TECHNIQUE: Left lower extremity venous duplex was performed with augmentation and compression. CLINICAL HISTORY: EDEMA AND PAIN LLE COMPARISON: None FINDINGS: Proper flow is seen throughout the deep venous system. There is no evidence of left lower extremity deep venous thrombosis. IMPRESSION: no deep venous thrombosis of the left lower extremity. Reviewed, Interpreted and Dictated by Jimy Pearl MD Transcribed by Meghana Asher Authenticated and [facility]
--- NOTE | 2024-10-03 09:21 | CA_ITS ---
FINAL REPORT TECHNIQUE: Arterial duplex Doppler evaluation of the left lower extremity with spectral analysis. CLINICAL HISTORY: PAIN AND EDEMA LLE FINDINGS: Left lower extremity, flow velocities (cm per second): Common femoral artery: 94 Profunda: 65 Proximal SFA: 109 Mid SFA: 116 Distal SFA: 97 Popliteal: 89 Proximal PERSONNEL GENERALIST MANAGER: 61 Mid PERSONNEL GENERALIST MANAGER: 67 Distal PERSONNEL GENERALIST MANAGER: 74 Distal GENEVA: 72 Peroneal: 101 IMPRESSION: Waveforms are noted to be biphasic. There is no significant arterial occlusive disease. Reviewed, Interpreted and Dictated by Jimy Pearl MD Transcribed by Maegan Jose Authenticated and [facility]
== END 2024-10-03 23:59 | disposition home or self-care (01) ==
LOC: RAD 08:40
PROVIDERS: PCP Internal Medicine Adolescent Medicine; Visit Provider Internal Medicine Adolescent Medicine
DX: R93.6 Abnormal findings on diagnostic imaging of limbs (principal); R09.89 Other specified symptoms and signs involving the circulatory and respiratory systems; R60.0 Localized edema; Z90.710 Acquired absence of both cervix and uterus
CPT/HCPCS: 76830; 93926; 93971